=== PATIENT | male | born 1975 ===

== ENCOUNTER 2023-03-21 11:52 | Inpatient (IN) | payer OTHER, SELFPAY ==
--- NOTE | ~2023-03-21 | US_ITS ---
EXAMINATION: US ABDOMEN LIMITED CLINICAL INFORMATION: Right upper quadrant abdominal pain. COMPARISON: None available. TECHNIQUE: Real-time imaging of the right upper quadrant abdominal viscera. FINDINGS: GALLBLADDER: There are multiple mobile echogenic gallstones without gallbladder wall thickening. There is mild tenderness in right upper quadrant. Mild impacted stones are seen in the neck of the gallbladder. COMMON BILE DUCT: CBD is suboptimally visualized and measures 0.7 cm in diameter. FREE FLUID: None. US/US abdomen limited IMPRESSION: Cholelithiasis with mild gallbladder tenderness. Gallbladder wall thickness measures 0.2 cm and is normal.
--- NOTE | 2023-03-21 12:51 | ED.ABDPAIN ---
HPI - Abdominal Pain General Chief Complaint: Abdominal Pain <Odessa Underwood NP - Last Filed: 03/21/23 12:54> Stated Complaint: R side abd pain <Odessa Underwood NP - Last Filed: 03/21/23 12:54> Time Seen by Provider: 03/21/23 13:52 <Odessa Underwood NP - Last Filed: 03/21/23 12:54> Source: patient <JUAN Jenkins - Last Filed: 03/23/23 15:08> Mode of arrival: ambulatory <JUAN Jenkins - Last Filed: 03/23/23 15:08> Limitations: no limitations <JUAN Jenkins Last Filed: 03/23/23 15:08> History of Present Illness HPI narrative: 47 yo male with PMH of morbid obesity (BMI 666), DM2, HTN who presents to the ER for evaluation of right sided abdominal pain that started 3 days ago after eating a seafood stew. He reports the pain was initially in the epigastric area and RUQ. He developed nausea and vomited once yesterday. The pain has migrated to his right middle abdomen and right lower abdomen. He rates the pain 7/10. He has been unable to tolerate any PO since the pain started. He has not had a BM since Tuesday either. No fever or chills, no urinary symptoms. No hx abdominal surgeries. He weighs 476 lbs and is seeing a bariatric surgeron at [facility]. <JUAN Jenkins - Last Filed: 03/23/23 15:08> MD elicited complaint: abdominal pain <JUAN Jenkins Last Filed: 03/23/23 15:08> Pertinent past history: none <JUAN Jenkins Last Filed: 03/23/23 15:08> Onset (ago): day(s) (3) <JUAN Jenkins Last Filed: 03/23/23 15:08> Pain Consistency: constant <JUAN Jenkins Last Filed: 03/23/23 15:08> Location: epigastric, RUQ and RLQ <JUAN Jenkins Last Filed: 03/23/23 15:08> Severity: moderate <JUAN Jenkins - Last Filed: 03/23/23 15:08> Pain scale (0-10): 7 <JUAN Jenkins - Last Filed: 03/23/23 15:08> Quality: stabbing <JUAN Jenkins - Last Filed: 03/23/23 15:08> Migration to: RLQ <JUAN Jenkins - Last Filed: 03/23/23 15:08> Exacerbating factors: eating <JUAN Jenkins - Last Filed: 03/23/23 15:08> Relieving factors: nothing <JUAN Jenkins - Last Filed: 03/23/23 15:08> Associated symptoms: nausea and vomiting <JUAN Jenkins - Last Filed: 03/23/23 15:08> Related Data Home Medications: Home Medications Medication Instructions Recorded Confirmed aspirin 81 mg tablet,delayed 81 mg PO DAILY 03/22/23 03/22/23 release dulaglutide 0.75 mg/0.5 mL 0.75 mg subcut QWEEK diabetes 03/22/23 03/22/23 subcutaneous pen injector (Trulicity) lisinopril 30 mg tablet 30 mg PO DAILY 03/22/23 03/22/23 loratadine 10 mg tablet 10 mg PO DAILY 03/22/23 03/22/23 pantoprazole 20 mg tablet,delayed 20 mg PO DAILY 03/22/23 03/22/23 release <Odessa Underwood NP - Last Filed: 03/21/23 12:54> Allergies/Adverse Reactions: Allergies Allergy/AdvReac Type Severity Reaction Status Date / Time No Known Allergies Allergy Verified 03/21/23 12:52 <Odessa Underwood NP - Last Filed: 03/21/23 12:54> Review of Systems Review of Systems Yes all other systems are reviewed and are negative <JUAN Jenkins - Last Filed: 03/23/23 15:08> PMFSH Past Medical History Medical History: Medical History (Updated 03/21/23 @ 23:57 by Sheryl Garza MD) Diabetes Hypertension <Odessa Underwood NP - Last Filed: 03/21/23 12:54> Surgical History: Surgical History (Updated 03/21/23 @ 23:58 by Sheryl Garza MD) No pertinent past surgical history <Odessa Underwood NP - Last Filed: 03/21/23 12:54> Social History Social History: Social History (Updated 03/21/23 @ 23:58 by Sheryl Garza MD) Household Members: Family Housing: Apartment Alcohol intake: current Alcohol intake frequency: does not drink Patient Tobacco Use Status: Never used Tobacco Second Hand Smoke Exposure: No service: No Current occupational status: disabled <Odessa Underwood NP - Last Filed: 03/21/23 12:54> Physical Exam ED Vital Signs: Vital Signs - 24 hr 03/21/23 12:53 03/21/23 15:46 03/21/23 14:30 Temperature 98.1 F 98.3 F Pulse Rate 99 83 84 Respiratory Rate 18 18 Blood Pressure 188/101 H 173/85 H 157/79 H Pulse Oximetry 98 97 96 Oxygen Delivery Method Room Air Room Air Room Air 03/21/23 18:41 03/21/23 20:46 03/21/23 23:21 Temperature 98.9 F 99.1 F 98.7 F Pulse Rate 85 84 89 Respiratory Rate 18 18 16 Blood Pressure 158/82 H 154/82 H 163/77 H Pulse Oximetry 97 97 97 Oxygen Delivery Method Room Air Room Air Room Air BMI result Body Mass Index 66.5 <Odessa Underwood NP - Last Filed: 03/21/23 12:54> Vital Signs - 24 hr 03/21/23 12:53 03/21/23 15:46 03/21/23 14:30 Temperature 98.1 F 98.3 F Pulse Rate 99 83 84 Respiratory Rate 18 18 Blood Pressure 188/101 H 173/85 H 157/79 H Pulse Oximetry 98 97 96 Oxygen Delivery Method Room Air Room Air Room Air 03/21/23 18:41 03/21/23 20:46 03/21/23 23:21 Temperature 98.9 F 99.1 F 98.7 F Pulse Rate 85 84 89 Respiratory Rate 18 18 16 Blood Pressure 158/82 H 154/82 H 163/77 H Pulse Oximetry 97 97 97 Oxygen Delivery Method Room Air Room Air Room Air BMI result Body Mass Index 66.5 <JUAN Jenkins - Last Filed: 03/23/23 15:08> Vital Signs - 24 hr 03/21/23 12:53 03/21/23 15:46 03/21/23 14:30 Temperature 98.1 F 98.3 F Pulse Rate 99 83 84 Respiratory Rate 18 18 Blood Pressure 188/101 H 173/85 H 157/79 H Pulse Oximetry 98 97 96 Oxygen Delivery Method Room Air Room Air Room Air 03/21/23 18:41 03/21/23 20:46 03/21/23 23:21 Temperature 98.9 F 99.1 F 98.7 F Pulse Rate 85 84 89 Respiratory Rate 18 18 16 Blood Pressure 158/82 H 154/82 H 163/77 H Pulse Oximetry 97 97 97 Oxygen Delivery Method Room Air Room Air Room Air BMI result Body Mass Index 66.5 <JUAN Schulz - Last Filed: 03/22/23 01:18> Appearance: Alert. Oriented X3. No acute distress. Head: normocephalic, atraumatic. Eyes: Pupils equal, round and reactive to light. ENT: Pharynx normal. No tonsillar swelling or exudate. Neck: Normal inspection. Neck supple. CVS: Normal heart rate and rhythm. Pulses normal. Respiratory: No respiratory distress. Breath sounds normal. Abdomen: Morbidly obese, Soft with tenderness in the right middle abdomen and right lower abdomen, no rebound or guarding, +BS x4 Skin: Skin warm and dry. Normal skin color. Normal skin turgor. No rashes. Extremities: No lower extremity edema. No joint swelling. Neuro/psych: Oriented X 3. No motor deficit. No sensory deficit. CN II-XII intact. Normal speech and cognition. <JUAN Jenkins - Last Filed: 03/23/23 15:08> Course Course Course Narrative: This is a rapid medical exam. Deferred additional HPI, ROS, PE to primary provider. 47 yo male DM, HTN here with right sided abdominal pain since Tuesday w/ vomiting. No diarrhea, fevers, urinary symptoms. No previous abdominal surgery. Patient reports no previous abdominal MRI he was told he had gallstones. Patient reports this began after eating seafood with bladder on Tuesday evening Will check labs, UA, abdominal ultrasound <Odessa Underwood NP - Last Filed: 03/21/23 12:54> Reevaluation(s) Reevaluation #1: Patient's ultrasound with cholelithiasis with mild gallbladder wall tenderness, gallbladder wall thickening measuring 0.2 cm, patient does have right-sided abdominal pain concerns for possible acute cholecystitis. I did discuss this case with surgery who recommended for me to reach out to GI further input as patient has an elevated bilirubin, I did speak to Dr. Ross GI who reports low suspicion for CBD stone. Patient's bilirubin is just slightly elevated, he has normal transaminases and alk-phos therefore low suspicion for CBD stone. Does recommend HIDA scan and MRCP if possible however no need for emergent scans at this time. Plan at this time is for hospital admission, with a surgical and GI consult. <JUAN Schulz - Last Filed: 03/22/23 01:18> Time: 23:01 <JUAN Schulz - Last Filed: 03/22/23 01:18> Reevaluation #2: EKG with ventricular rate of 91, DE normal QRS normal, QT/QTC normal. She is showing right bundle-branch block no ST elevations or inversions concerning for ischemia, no previous to compare with, patient that chest pain or shortness of breath. <JUAN Schulz - Last Filed: 03/22/23 01:18> Time: 01:18 <JUAN Schulz - Last Filed: 03/22/23 01:18> Medical Decision Making Medical Decision Making MDM Narrative: 47 yo male w/ hx morbid obesity, HTN, DM2 presenting with right sided abdominal pain for the last 3 days. +N/V yesterday. Mild leukocytosis. Question of cholecystitis vs biliary colic vs appendicitis. LFTs not c/w biliary obstruction RUQ U/S pending <JUAN Jenkins Last Filed: 03/23/23 15:08> Differential Diagnosis Differential Diagnoses: The differential diagnosis associated with the presentation includes <JUAN Jenkins Last Filed: 03/23/23 15:08> acute cholecystitis, acute appendicitis, biliary colic, choledocholithiasis, gastroenteritis, diverticulitis, food poisoning, SBO <JUAN Jenkins Last Filed: 03/23/23 15:08> Admission/Observation Consideration of admission/observation: Escalation of care including admission/observation considered <JUAN Jenkins - Last Filed: 03/23/23 15:08> Consult Healthcare Provider Management of the patient was discussed with: Collet Gluer <JUAN Jenkins - Last Filed: 03/23/23 15:08> Dr. Reddy from general surgery - awaiting official RUQ U/S read <JUAN Jenkins - Last Filed: 03/23/23 15:08> Lab Data MDM Lab Attestation statement: I reviewed the patient's lab results. <JUAN Jenkins - Last Filed: 03/23/23 15:08> mild leukocytosis and mild hyponatremia, normal renal function, no evidence of biliary obstruction, ALP normal <JUAN Jenkins - Last Filed: 03/23/23 15:08> Result Diagrams: 03/21/23 13:06 03/21/23 13:06 <Odessa Underwood NP - Last Filed: 03/21/23 12:54> Labs: Lab Results 03/21/23 03/21/23 03/21/23 Range/Units 13:06 13:06 13:06 WBC 12.8 H (4.8-10.8) X10*3/uL RBC 5.16 (4.60-5.80) X10*6/uL Hgb 15.3 (14.0-18.0) g/dl Hct 43.8 (42.0-52.0) % MCV 84.9 (80.0-98.0) fL MCH 29.7 (27.0-33.0) pg MCHC 34.9 (31.0-36.0) g/dl RDW 12.3 (11.0-16.0) % Plt Count 207 (160-400) X10*3/uL MPV 9.8 (9.4-12.4) fL Immature Gran % (Auto) 0.4 (0.0-0.4) % Neut % (Auto) 77.4 H (45-73) % Lymph % (Auto) 10.0 L (20-40) % [place] % (Auto) 11.6 H (2-11) % Eos % (Auto) 0.3 (0-4) % Baso % (Auto) 0.3 (0-2) % Lymph # (Auto) 1.3 (1.2-4.9) X10*3/uL [place] # (Auto) 1.5 H (0.1-1.2) X10*3/uL Eos # (Auto) 0.0 (0.0-0.4) X10*3/uL Baso # (Auto) 0.0 (0.0-0.2) X10*3/uL Abs Immat Gran (auto) 0.05 H (0.00-0.03) X10*3/uL Absolute Neuts (auto) 9.9 H (2.0-8.3) x10*3/uL Absolute Nucleated RBC 0.000 (0.0-0.012) X10*3/uL Nucleated RBC % (auto) 0.0 (0.0-0.2) /100WBC Smear Tech's Comments VERIFIED Sodium 132 L (135-145) mmol/L Potassium 4.2 (3.3-5.1) mmol/L Chloride 100 (96-108) mmol/L Carbon Dioxide 24 (22-29) mmol/L Anion Gap 12 (12-20) BUN 7 L (9-16) mg/dL Creatinine 0.73 (0.5-1.4) mg/dL Estim Creat Clear Calc 235.5 Estimated GFR > 60 Random Glucose 194 H (60-115) mg/dL Calcium 9.2 (8.4-10.2) mg/dL Total Bilirubin 1.6 H (0.0-1.0) mg/dL Direct Bilirubin 0.4 (0.0-0.5) mg/dL AST 32 (5-37) U/L ALT 45 H (0-40) U/L Alkaline Phosphatase 90 (39-117) U/L Total Protein 7.8 (6.5-8.0) g/dL Albumin 4.2 (3.5-5.0) g/dL Lipase 30 (8-78) U/L Urine Color Urine Appearance Urine pH (5.0-9.0) Ur Specific [place] (1.005-1.025) Urine Protein (Neg-Trace) mg/dL Urine Glucose (UA) (Negative) mg/dL Urine Ketones (Negative) mg/dL Urine Blood (Negative) Urine Nitrite (Negative) Ur Leukocyte Esterase (Negative) COVID-19 (ALESSANDRA) Negative (Negative) COVID-19 Clin Com See Note 03/21/23 Range/Units 16:29 WBC (4.8-10.8) X10*3/uL RBC (4.60-5.80) X10*6/uL Hgb (14.0-18.0) g/dl Hct (42.0-52.0) % MCV (80.0-98.0) fL MCH (27.0-33.0) pg MCHC (31.0-36.0) g/dl RDW (11.0-16.0) % Plt Count (160-400) X10*3/uL MPV (9.4-12.4) fL Immature Gran % (Auto) (0.0-0.4) % Neut % (Auto) (45-73) % Lymph % (Auto) (20-40) % [place] % (Auto) (2-11) % Eos % (Auto) (0-4) % Baso % (Auto) (0-2) % Lymph # (Auto) (1.2-4.9) X10*3/uL [place] # (Auto) (0.1-1.2) X10*3/uL Eos # (Auto) (0.0-0.4) X10*3/uL Baso # (Auto) (0.0-0.2) X10*3/uL Abs Immat Gran (auto) (0.00-0.03) X10*3/uL Absolute Neuts (auto) (2.0-8.3) x10*3/uL Absolute Nucleated RBC (0.0-0.012) X10*3/uL Nucleated RBC % (auto) (0.0-0.2) /100WBC Smear Tech's Comments Sodium (135-145) mmol/L Potassium (3.3-5.1) mmol/L Chloride (96-108) mmol/L Carbon Dioxide (22-29) mmol/L Anion Gap (12-20) BUN (9-16) mg/dL Creatinine (0.5-1.4) mg/dL Estim Creat Clear Calc Estimated GFR Random Glucose (60-115) mg/dL Calcium (8.4-10.2) mg/dL Total Bilirubin (0.0-1.0) mg/dL Direct Bilirubin (0.0-0.5) mg/dL AST (5-37) U/L ALT (0-40) U/L Alkaline Phosphatase (39-117) U/L Total Protein (6.5-8.0) g/dL Albumin (3.5-5.0) g/dL Lipase (8-78) U/L Urine Color Yellow Urine Appearance Clear Urine pH 7.5 (5.0-9.0) Ur Specific [place] 1.010 (1.005-1.025) Urine Protein Negative (Neg-Trace) mg/dL Urine Glucose (UA) Negative (Negative) mg/dL Urine Ketones Negative (Negative) mg/dL Urine Blood Negative (Negative) Urine Nitrite Negative (Negative) Ur Leukocyte Esterase Negative (Negative) COVID-19 (ALESSANDRA) (Negative) COVID-19 Clin Com <Odessa Underwood [employer] - Last Filed: 03/21/23 12:54> Lab Results 03/21/23 03/21/23 03/21/23 Range/Units 13:06 13:06 13:06 WBC 12.8 H (4.8-10.8) X10*3/uL RBC 5.16 (4.60-5.80) X10*6/uL Hgb 15.3 (14.0-18.0) g/dl Hct 43.8 (42.0-52.0) % MCV 84.9 (80.0-98.0) fL MCH 29.7 (27.0-33.0) pg MCHC 34.9 (31.0-36.0) g/dl RDW 12.3 (11.0-16.0) % Plt Count 207 (160-400) X10*3/uL MPV 9.8 (9.4-12.4) fL Immature Gran % (Auto) 0.4 (0.0-0.4) % Neut % (Auto) 77.4 H (45-73) % Lymph % (Auto) 10.0 L (20-40) % [place] % (Auto) 11.6 H (2-11) % Eos % (Auto) 0.3 (0-4) % Baso % (Auto) 0.3 (0-2) % Lymph # (Auto) 1.3 (1.2-4.9) X10*3/uL [place] # (Auto) 1.5 H (0.1-1.2) X10*3/uL Eos # (Auto) 0.0 (0.0-0.4) X10*3/uL Baso # (Auto) 0.0 (0.0-0.2) X10*3/uL Abs Immat Gran (auto) 0.05 H (0.00-0.03) X10*3/uL Absolute Neuts (auto) 9.9 H (2.0-8.3) x10*3/uL Absolute Nucleated RBC 0.000 (0.0-0.012) X10*3/uL Nucleated RBC % (auto) 0.0 (0.0-0.2) /100WBC Smear Tech's Comments VERIFIED Sodium 132 L (135-145) mmol/L Potassium 4.2 (3.3-5.1) mmol/L Chloride 100 (96-108) mmol/L Carbon Dioxide 24 (22-29) mmol/L Anion Gap 12 (12-20) BUN 7 L (9-16) mg/dL Creatinine 0.73 (0.5-1.4) mg/dL Estim Creat Clear Calc 235.5 Estimated GFR > 60 Random Glucose 194 H (60-115) mg/dL Calcium 9.2 (8.4-10.2) mg/dL Total Bilirubin 1.6 H (0.0-1.0) mg/dL Direct Bilirubin 0.4 (0.0-0.5) mg/dL AST 32 (5-37) U/L ALT 45 H (0-40) U/L Alkaline Phosphatase 90 (39-117) U/L Total Protein 7.8 (6.5-8.0) g/dL Albumin 4.2 (3.5-5.0) g/dL Lipase 30 (8-78) U/L Urine Color Urine Appearance Urine pH (5.0-9.0) Ur Specific [place] (1.005-1.025) Urine Protein (Neg-Trace) mg/dL Urine Glucose (UA) (Negative) mg/dL Urine Ketones (Negative) mg/dL Urine Blood (Negative) Urine Nitrite (Negative) Ur Leukocyte Esterase (Negative) COVID-19 (ALESSANDRA) Negative (Negative) COVID-19 Clin Com See Note 03/21/23 Range/Units 16:29 WBC (4.8-10.8) X10*3/uL RBC (4.60-5.80) X10*6/uL Hgb (14.0-18.0) g/dl Hct (42.0-52.0) % MCV (80.0-98.0) fL MCH (27.0-33.0) pg MCHC (31.0-36.0) g/dl RDW (11.0-16.0) % Plt Count (160-400) X10*3/uL MPV (9.4-12.4) fL Immature Gran % (Auto) (0.0-0.4) % Neut % (Auto) (45-73) % Lymph % (Auto) (20-40) % [place] % (Auto) (2-11) % Eos % (Auto) (0-4) % Baso % (Auto) (0-2) % Lymph # (Auto) (1.2-4.9) X10*3/uL [place] # (Auto) (0.1-1.2) X10*3/uL Eos # (Auto) (0.0-0.4) X10*3/uL Baso # (Auto) (0.0-0.2) X10*3/uL Abs Immat Gran (auto) (0.00-0.03) X10*3/uL Absolute Neuts (auto) (2.0-8.3) x10*3/uL Absolute Nucleated RBC (0.0-0.012) X10*3/uL Nucleated RBC % (auto) (0.0-0.2) /100WBC Smear Tech's Comments Sodium (135-145) mmol/L Potassium (3.3-5.1) mmol/L Chloride (96-108) mmol/L Carbon Dioxide (22-29) mmol/L Anion Gap (12-20) BUN (9-16) mg/dL Creatinine (0.5-1.4) mg/dL Estim Creat Clear Calc Estimated GFR Random Glucose (60-115) mg/dL Calcium (8.4-10.2) mg/dL Total Bilirubin (0.0-1.0) mg/dL Direct Bilirubin (0.0-0.5) mg/dL AST (5-37) U/L ALT (0-40) U/L Alkaline Phosphatase (39-117) U/L Total Protein (6.5-8.0) g/dL Albumin (3.5-5.0) g/dL Lipase (8-78) U/L Urine Color Yellow Urine Appearance Clear Urine pH 7.5 (5.0-9.0) Ur Specific [place] 1.010 (1.005-1.025) Urine Protein Negative (Neg-Trace) mg/dL Urine Glucose (UA) Negative (Negative) mg/dL Urine Ketones Negative (Negative) mg/dL Urine Blood Negative (Negative) Urine Nitrite Negative (Negative) Ur Leukocyte Esterase Negative (Negative) COVID-19 (ALESSANDRA) (Negative) COVID-19 Clin Com <JUAN Jenkins - Last Filed: 03/23/23 15:08> Lab Results 03/21/23 03/21/23 03/21/23 Range/Units 13:06 13:06 13:06 WBC 12.8 H (4.8-10.8) X10*3/uL RBC 5.16 (4.60-5.80) X10*6/uL Hgb 15.3 (14.0-18.0) g/dl Hct 43.8 (42.0-52.0) % MCV 84.9 (80.0-98.0) fL MCH 29.7 (27.0-33.0) pg MCHC 34.9 (31.0-36.0) g/dl RDW 12.3 (11.0-16.0) % Plt Count 207 (160-400) X10*3/uL MPV 9.8 (9.4-12.4) fL Immature Gran % (Auto) 0.4 (0.0-0.4) % Neut % (Auto) 77.4 H (45-73) % Lymph % (Auto) 10.0 L (20-40) % [place] % (Auto) 11.6 H (2-11) % Eos % (Auto) 0.3 (0-4) % Baso % (Auto) 0.3 (0-2) % Lymph # (Auto) 1.3 (1.2-4.9) X10*3/uL [place] # (Auto) 1.5 H (0.1-1.2) X10*3/uL Eos # (Auto) 0.0 (0.0-0.4) X10*3/uL Baso # (Auto) 0.0 (0.0-0.2) X10*3/uL Abs Immat Gran (auto) 0.05 H (0.00-0.03) X10*3/uL Absolute Neuts (auto) 9.9 H (2.0-8.3) x10*3/uL Absolute Nucleated RBC 0.000 (0.0-0.012) X10*3/uL Nucleated RBC % (auto) 0.0 (0.0-0.2) /100WBC Smear Tech's Comments VERIFIED Sodium 132 L (135-145) mmol/L Potassium 4.2 (3.3-5.1) mmol/L Chloride 100 (96-108) mmol/L Carbon Dioxide 24 (22-29) mmol/L Anion Gap 12 (12-20) BUN 7 L (9-16) mg/dL Creatinine 0.73 (0.5-1.4) mg/dL Estim Creat Clear Calc 235.5 Estimated GFR > 60 Random Glucose 194 H (60-115) mg/dL Calcium 9.2 (8.4-10.2) mg/dL Total Bilirubin 1.6 H (0.0-1.0) mg/dL Direct Bilirubin 0.4 (0.0-0.5) mg/dL AST 32 (5-37) U/L ALT 45 H (0-40) U/L Alkaline Phosphatase 90 (39-117) U/L Total Protein 7.8 (6.5-8.0) g/dL Albumin 4.2 (3.5-5.0) g/dL Lipase 30 (8-78) U/L Urine Color Urine Appearance Urine pH (5.0-9.0) Ur Specific [place] (1.005-1.025) Urine Protein (Neg-Trace) mg/dL Urine Glucose (UA) (Negative) mg/dL Urine Ketones (Negative) mg/dL Urine Blood (Negative) Urine Nitrite (Negative) Ur Leukocyte Esterase (Negative) COVID-19 (ALESSANDRA) Negative (Negative) COVID-19 Clin Com See Note 03/21/23 Range/Units 16:29 WBC (4.8-10.8) X10*3/uL RBC (4.60-5.80) X10*6/uL Hgb (14.0-18.0) g/dl Hct (42.0-52.0) % MCV (80.0-98.0) fL MCH (27.0-33.0) pg MCHC (31.0-36.0) g/dl RDW (11.0-16.0) % Plt Count (160-400) X10*3/uL MPV (9.4-12.4) fL Immature Gran % (Auto) (0.0-0.4) % Neut % (Auto) (45-73) % Lymph % (Auto) (20-40) % [place] % (Auto) (2-11) % Eos % (Auto) (0-4) % Baso % (Auto) (0-2) % Lymph # (Auto) (1.2-4.9) X10*3/uL [place] # (Auto) (0.1-1.2) X10*3/uL Eos # (Auto) (0.0-0.4) X10*3/uL Baso # (Auto) (0.0-0.2) X10*3/uL Abs Immat Gran (auto) (0.00-0.03) X10*3/uL Absolute Neuts (auto) (2.0-8.3) x10*3/uL Absolute Nucleated RBC (0.0-0.012) X10*3/uL Nucleated RBC % (auto) (0.0-0.2) /100WBC Smear Tech's Comments Sodium (135-145) mmol/L Potassium (3.3-5.1) mmol/L Chloride (96-108) mmol/L Carbon Dioxide (22-29) mmol/L Anion Gap (12-20) BUN (9-16) mg/dL Creatinine (0.5-1.4) mg/dL Estim Creat Clear Calc Estimated GFR Random Glucose (60-115) mg/dL Calcium (8.4-10.2) mg/dL Total Bilirubin (0.0-1.0) mg/dL Direct Bilirubin (0.0-0.5) mg/dL AST (5-37) U/L ALT (0-40) U/L Alkaline Phosphatase (39-117) U/L Total Protein (6.5-8.0) g/dL Albumin (3.5-5.0) g/dL Lipase (8-78) U/L Urine Color Yellow Urine Appearance Clear Urine pH 7.5 (5.0-9.0) Ur Specific [place] 1.010 (1.005-1.025) Urine Protein Negative (Neg-Trace) mg/dL Urine Glucose (UA) Negative (Negative) mg/dL Urine Ketones Negative (Negative) mg/dL Urine Blood Negative (Negative) Urine Nitrite Negative (Negative) Ur Leukocyte Esterase Negative (Negative) COVID-19 (ALESSANDRA) (Negative) COVID-19 Clin Com <JUAN Schulz - Last Filed: 03/22/23 01:18> Independent Interpretation I performed an independent interpretation of an: Ultrasound <JUAN Jenkins - Last Filed: 03/23/23 15:08> Interpretation: GB stones present <JUAN Jenkins - Last Filed: 03/23/23 15:08> Radiology Impression Discussion of test interpretation with radiology: I have reviewed the radiologist's reading. <JUAN Jenkins - Last Filed: 03/23/23 15:08> Prescription Management I considered prescription management with: Pain Medication and Antibiotic <JUAN Jenkins Last Filed: 03/23/23 15:08> Chronic Conditions Patient?s care impacted by: Diabetes, Hypertension and Other (morbid obesity) <JUAN Jenkins Last Filed: 03/23/23 15:08> Medications Administered Generic Name Dose Route Start Last Admin Trade Name Freq PRN Reason Stop Dose Admin Acetaminophen 650 mg 03/21/23 23:30 03/23/23 04:06 Acetaminophen 325 Mg Tablet PO 650 mg Q6H PRN Administration Pain, Mild (Pain Scale 1-3) Docusate Sodium 100 mg 03/22/23 21:00 03/23/23 08:17 Docusate Sodium 100 Mg Capsule PO 100 mg BID KARRIE Administration Ceftriaxone Sodium 1 gm/ 50 mls @ 100 mls/hr 03/22/23 00:00 03/22/23 21:35 Sodium Chloride IV Infused BEDTIME [facility] Infusion Metronidazole 500 mg in 100 mls @ 100 mls/hr 03/22/23 00:00 03/23/23 09:45 Flagyl IV Infused Q8H KARRIE Infusion Sodium Chloride 1,000 mls @ 80 mls/hr 03/21/23 23:45 03/23/23 13:16 Ns IVCONT 80 mls/hr .[id number] KARRIE Administration Insulin Human Lispro 0 unit 03/22/23 07:30 03/23/23 11:52 Insulin Lispro 100 Unit/Ml 3 Ml Vial SUBCUT 4 unit QIDACHS [facility] Administration Protocol Loratadine 10 mg 03/22/23 09:00 03/23/23 08:17 Loratadine 10 Mg Tablet PO 10 mg DAILY [facility] Administration Morphine Sulfate 4 mg 03/21/23 23:30 03/22/23 21:15 Morphine Sulfate 4 Mg/Ml Cartridge IVPUSH 4 mg Q4H PRN Administration Pain, Severe (Pain Scale 7-10) Protocol Omeprazole 20 mg 03/23/23 06:30 03/23/23 05:22 Omeprazole 20 Mg Capsule.Dr PO 20 mg DAILY@0630 [facility] Administration Oxycodone HCl 10 mg 03/22/23 16:40 03/23/23 04:07 Oxycodone Hcl Immed Release 5 Mg Tablet PO 10 mg Q4H PRN Administration Pain, Severe (Pain Scale 7-10) Sodium Chloride 3 ml 03/22/23 00:00 03/23/23 08:29 0.9 % Sodium Chloride Flush 3 Ml Syringe IVFLUSH 3 ml QSHIFT [facility] Administration Sodium Chloride 3 ml 03/22/23 16:00 03/23/23 08:29 0.9 % Sodium Chloride Flush 3 Ml [facility]ringe [facility] Medications Generic Name Dose Route Start Last Admin Trade Name Freq PRN Reason Stop Dose Admin Sodium Chloride 1,000 mls @ 999 mls/hr 03/21/23 14:45 03/21/23 16:26 Ns IV 03/21/23 15:45 Infused .Q1H1M [facility] Infusion Morphine Sulfate 4 mg 03/21/23 14:39 03/21/23 15:26 Morphine Sulfate 4 Mg/Ml Cartridge IVPUSH 03/21/23 14:40 4 mg ONCE ONE Administration Protocol Ondansetron HCl 4 mg 03/21/23 14:39 03/21/23 15:26 Ondansetron Hcl 4 Mg/2 Ml Vial IVPUSH 03/21/23 14:40 4 mg ONCE ONE Administration <Odessa Underwood NP - Last Filed: 03/21/23 12:54> Medications Administered Generic Name Dose Route Start Last Admin Trade Name Freq PRN Reason Stop Dose Admin Acetaminophen 650 mg 03/21/23 23:30 03/23/23 04:06 Acetaminophen 325 Mg Tablet PO 650 mg Q6H PRN Administration Pain, Mild (Pain Scale 1-3) Docusate Sodium 100 mg 03/22/23 21:00 03/23/23 08:17 Docusate Sodium 100 Mg Capsule PO 100 mg BID [facility]E Administration Ceftriaxone Sodium 1 gm/ 50 mls @ 100 mls/hr 03/22/23 00:00 03/22/23 21:35 Sodium Chloride IV Infused BEDTIME [facility] Infusion Metronidazole 500 mg in 100 mls @ 100 mls/hr 03/22/23 00:00 03/23/23 09:45 Flagyl IV Infused Q8H [facility] Infusion Sodium Chloride 1,000 mls @ 80 mls/hr 03/21/23 23:45 03/23/23 13:16 Ns IVCONT 80 mls/hr .[id number] [facility] Administration Insulin Human Lispro 0 unit 03/22/23 07:30 03/23/23 11:52 Insulin Lispro 100 Unit/Ml 3 Ml Vial SUBCUT 4 unit QIDACHS [facility] Administration Protocol Loratadine 10 mg 03/22/23 09:00 03/23/23 08:17 Loratadine 10 Mg Tablet PO 10 mg DAILY [facility] Administration Morphine Sulfate 4 mg 03/21/23 23:30 03/22/23 21:15 Morphine Sulfate 4 Mg/Ml Cartridge IVPUSH 4 mg Q4H PRN Administration Pain, Severe (Pain Scale 7-10) Protocol Omeprazole 20 mg 03/23/23 06:30 03/23/23 05:22 Omeprazole 20 Mg Capsule.Dr PO 20 mg DAILY@0630 [facility] Administration Oxycodone HCl 10 mg 03/22/23 16:40 03/23/23 04:07 Oxycodone Hcl Immed Release 5 Mg Tablet PO 10 mg Q4H PRN Administration Pain, Severe (Pain Scale 7-10) Sodium Chloride 3 ml 03/22/23 00:00 03/23/23 08:29 0.9 % Sodium Chloride Flush 3 Ml Syringe IVFLUSH 3 ml QSHIFT KARRIE Administration Sodium Chloride 3 ml 03/22/23 16:00 03/23/23 08:29 0.9 % Sodium Chloride Flush 3 Ml Syringe IVFLUSH Not Given QSHIFT KARRIE Discontinued Medications Generic Name Dose Route Start Last Admin Trade Name Freq PRN Reason Stop Dose Admin Sodium Chloride 1,000 mls @ 999 mls/hr 03/21/23 14:45 03/21/23 16:26 Ns IV 03/21/23 15:45 Infused .Q1H1M KARRIE Infusion Morphine Sulfate 4 mg 03/21/23 14:39 03/21/23 15:26 Morphine Sulfate 4 Mg/Ml Cartridge IVPUSH 03/21/23 14:40 4 mg ONCE ONE Administration Protocol Ondansetron HCl 4 mg 03/21/23 14:39 03/21/23 15:26 Ondansetron Hcl 4 Mg/2 Ml Vial IVPUSH 03/21/23 14:40 4 mg ONCE ONE Administration <JUAN Jenkins - Last Filed: 03/23/23 15:08> Medications Administered Generic Name Dose Route Start Last Admin Trade Name Winston PRN Reason Stop Dose Admin Acetaminophen 650 mg 03/21/23 23:30 03/23/23 04:06 Acetaminophen 325 Mg Tablet PO 650 mg Q6H PRN Administration Pain, Mild (Pain Scale 1-3) Docusate Sodium 100 mg 03/22/23 21:00 03/23/23 08:17 Docusate Sodium 100 Mg Capsule PO 100 mg BID KARRIE Administration Ceftriaxone Sodium 1 gm/ 50 mls @ 100 mls/hr 03/22/23 00:00 03/22/23 21:35 Sodium Chloride IV Infused BEDTIME KARRIE Infusion Metronidazole 500 mg in 100 mls @ 100 mls/hr 03/22/23 00:00 03/23/23 09:45 Flagyl IV Infused Q8H KARRIE Infusion Sodium Chloride 1,000 mls @ 80 mls/hr 03/21/23 23:45 03/23/23 13:16 Ns IVCONT 80 mls/hr .[id number] KARRIE Administration Insulin Human Lispro 0 unit 03/22/23 07:30 03/23/23 11:52 Insulin Lispro 100 Unit/Ml 3 Ml Vial SUBCUT 4 unit QIDACHS [facility] Administration Protocol Loratadine 10 mg 03/22/23 09:00 03/23/23 08:17 Loratadine 10 Mg Tablet PO 10 mg DAILY KARRIE Administration Morphine Sulfate 4 mg 03/21/23 23:30 03/22/23 21:15 Morphine Sulfate 4 Mg/Ml Cartridge IVPUSH 4 mg Q4H PRN Administration Pain, Severe (Pain Scale 7-10) Protocol Omeprazole 20 mg 03/23/23 06:30 03/23/23 05:22 Omeprazole 20 Mg Capsule.Dr PO 20 mg DAILY@0630 [facility] Administration Oxycodone HCl 10 mg 03/22/23 16:40 03/23/23 04:07 Oxycodone Hcl Immed Release 5 Mg Tablet PO 10 mg Q4H PRN Administration Pain, Severe (Pain Scale 7-10) Sodium Chloride 3 ml 03/22/23 00:00 03/23/23 08:29 0.9 % Sodium Chloride Flush 3 Ml Syringe IVFLUSH 3 ml QSWVFT [facility] Administration Sodium Chloride 3 ml 03/22/23 16:00 03/23/23 08:29 0.9 % Sodium Chloride Flush 3 Ml [facility]ringe [facility] Discontinued Medications Generic Name Dose Route Start Last Admin Trade Name Freq PRN Reason Stop Dose Admin Sodium Chloride 1,000 mls @ 999 mls/hr 03/21/23 14:45 03/21/23 16:26 Ns IV 03/21/23 15:45 Infused .Q1H1M KARRIE Infusion Morphine Sulfate 4 mg 03/21/23 14:39 03/21/23 15:26 Morphine Sulfate 4 Mg/Ml Cartridge IVPUSH 03/21/23 14:40 4 mg ONCE ONE Administration Protocol Ondansetron HCl 4 mg 03/21/23 14:39 03/21/23 15:26 Ondansetron Hcl 4 Mg/2 Ml Vial IVPUSH 03/21/23 14:40 4 mg ONCE ONE Administration <JUAN Schulz - Last Filed: 03/22/23 01:18> Critical Care Time Critical Care Time Critical Care Time: No <JUAN Schulz - Last Filed: 03/22/23 01:18> Discharge Plan Discharge Clinical Impression: Abdominal pain, Cholelithiasis, Nausea & vomiting <Odessa Underwood NP - Last Filed: 03/21/23 12:54> Patient Disposition: Admitted As Inpatient <Odessa Underwood NP - Last Filed: 03/21/23 12:54> Interventions: Admission Worksheet (ED) Last Done: 03/22/23 01:57 <Odessa Underwood NP - Last Filed: 03/21/23 12:54> Discharge Date/Time: 03/22/23 01:57 <Odessa Underwood NP - Last Filed: 03/21/23 12:54>
[2023-03-21 12:53] VITALS: BP 188/101; PULSE 99; RESP 18; TEMP 36.7; O2SAT 98; BMI 66.5
[2023-03-21 13:17] LABS: Basophils Percent Auto 0.3 % (0-2); PLT CLUMP 1; Red Cell Distribution Width 12.3 % (11.0-16.0); SCAN SMEAR FLAG 1
[2023-03-21 13:19] LABS: Eosinophils Percent Auto 0.3 % (0-4); Hematocrit 43.8 % (42.0-52.0); Hemoglobin 15.3 g/dl (14.0-18.0); Imm Gran Abs Auto 0.05 X10*3/uL (0.00-0.03); Imm Gran Pct Auto 0.4 % (0.0-0.4); Lymphocytes Absolute Auto 1.3 X10*3/uL (1.2-4.9); MANUAL DIFF FLAG SCAN; Mean Corpuscular HGB Conc 34.9 g/dl (31.0-36.0); Mean Corpuscular Hemoglobin 29.7 pg (27.0-33.0); Mean Corpuscular Volume 84.9 fL (80.0-98.0); Mean Platelet Volume 9.8 fL (9.4-12.4); Monocytes Absolute Auto 1.5 X10*3/uL (0.1-1.2); Monocytes Percent Auto 11.6 % (2-11); Neutrophils Absolute Auto 9.9 x10*3/uL (2.0-8.3); Neutrophils Percent Auto 77.4 % (45-73); Red Blood Count 5.16 X10*6/uL (4.60-5.80)
[2023-03-21 13:24] LABS: White Blood Count 12.8 X10*3/uL (4.8-10.8)
[2023-03-21 13:30] LABS: COVID-19 Test Negative (Negative); IDNOW Serial# 08D9AD1C
[2023-03-21 13:37] LABS: Alanine Aminotransferase 45 U/L (0-40); Albumin Level 4.2 g/dL (3.5-5.0); Alkaline Phosphatase 90 U/L (39-117); Anion Gap 12 (12-20); Aspartate Amino Transferase 32 U/L (5-37); Bilirubin Direct 0.4 mg/dL (0.0-0.5); Bilirubin Total 1.6 mg/dL (0.0-1.0); Blood Urea Nitrogen 7 mg/dL (9-16); Calcium 9.2 mg/dL (8.4-10.2); Carbon Dioxide 24 mmol/L (22-29); Chloride 100 mmol/L (96-108); Creatinine Clr Calc Pharmacy 235.5; Estimated Glomerular Filt Rate > 60; Glucose Random 194 mg/dL (60-115); Lipase 30 U/L (8-78); Potassium 4.2 mmol/L (3.3-5.1); Sodium 132 mmol/L (135-145); Total Protein 7.8 g/dL (6.5-8.0)
[2023-03-21 13:38] LABS: Platelet Count 207 X10*3/uL (160-400); SLIDE REVIEW VERIFIED
[2023-03-21 14:30] VITALS: BP 157/79; PULSE 84; O2SAT 96
[2023-03-21] MEDS: 0.9 % Sodium Chloride 1,000 ML 999 ML IV (15:17)
[2023-03-21] MEDS: Morphine Sulfate 4 MG/ML CARTRIDGE IVPUSH (15:26)
[2023-03-21] MEDS: ondansetron HCL 4 MG/2 ML VIAL IVPUSH (15:26)
[2023-03-21 15:46] VITALS: BP 173/85; PULSE 83; RESP 18; TEMP 36.8; O2SAT 97
[2023-03-21 16:40] LABS: Appearance Urine Clear; Color Urine Yellow; Glucose Urine UA Negative (Negative); Leukocyte Esterase Urine Negative (Negative); Nitrite Urine Negative (Negative); PH 7.5 (5.0-9.0); Urine Blood Negative (Negative); Urine Ketones Negative (Negative); Urine Protein Negative (Neg-Trace)
[2023-03-21 18:41] VITALS: BP 158/82; PULSE 85; RESP 18; TEMP 37.2; O2SAT 97
[2023-03-21 20:46] VITALS: BP 154/82; PULSE 84; RESP 18; TEMP 37.3; O2SAT 97
--- NOTE | 2023-03-21 23:04 | ECG_ITS ---
Test Reason : abd pain Blood Pressure : / mmHG Vent. Rate : 091 BPM Atrial Rate : 091 BPM P-R Int : 150 ms QRS Dur : 142 ms QT Int : 400 ms P-R-T Axes : 054 062 024 degrees QTc Int : 492 ms Normal sinus rhythm Right bundle branch block Abnormal ECG No previous ECGs available Referred By: Crow Ellis Electronically Signed By:Mahendra Pa
[2023-03-21 23:21] VITALS: BP 163/77; PULSE 89; RESP 16; TEMP 37.1; O2SAT 97
--- NOTE | 2023-03-21 23:22 | MHC.EDTECH ---
THIS PCT ASSUMED CARE OF PATIENT AT 2300 ,VITALS SIGN TAKEN ,EKG DONE AND WAS READ BY PROVIDER ,PATIENT GOT CHANGE INTO HOSPITAL ATTIRE ,DANIELA PACHECO AT BED SIDE .
--- NOTE | 2023-03-21 23:33 | P.HPHOSP_ITS ---
History of Present Illness Date of Service: 03/21/23 Chief Complaint: abdominal pain 27-year-old male past medical history of hypertension, diabetes presents the hospital with complaints of right upper quadrant pain. Patient reports pain started in the epigastric region on Tuesday, worsened over the next 2 days, pain is now localized to the right upper quadrant, associated with nausea, 1 episode of vomiting. Pain is constant, 8/10, nonradiating, worse with eating food, improved with IV morphine. Denies any fever no chills, no previous similar episodes, no diarrhea constipation, no urinary symptoms and no lower extremity edema, no weakness numbness or tingling. No headache or change in vision, no numbness, Weakness or tingling On arrival to the ED patient found to have a temp of 99.1 degrees otherwise stable Labs are significant for WBC count of 12.8,Na 132, total bili 1.6 mostly indirect. is not a candidate for CT of the abdomen given his weight, patient ultrasound showed cholelithiasis with mild gallbladder tenderness, gallbladder wall thickening this was discussed with general surgery, wanted GI to evaluate patient, GI does not believe the patient requires ERCP/MRCP therefore patient will be scheduled for HIDA scan in the morning which general surgery consult Review of Systems Review of Systems: Yes all other systems are reviewed and are negative [facility] Medical History (Updated 03/21/23 @ 23:57 by Sheryl Garza MD) Diabetes Hypertension Surgical History (Updated 03/21/23 @ 23:58 by Sheryl Garza MD) No pertinent past surgical history Social History (Updated 03/21/23 @ 23:58 by Sheryl Garza MD) Alcohol intake: current Alcohol intake frequency: holidays/special occasions only Patient Tobacco Use Status: Never used Tobacco Meds Allergies Allergy/AdvReac Type Severity Reaction Status Date / Time No Known Allergies Allergy Verified 03/21/23 12:52 Active Medications: Current Medications Pharmacy Consult (Consult Rx Perform Med Rec) 1 each MISCELLANE ONCE PRN PRN Reason: Consult order Physical Exam Vital Signs and Narrative: Vital Signs: Last Vital Signs Temp 98.7 F 03/21/23 23:21 Pulse 89 03/21/23 23:21 Resp 16 03/21/23 23:21 BP 163/77 H 03/21/23 23:21 Pulse Ox 97 03/21/23 23:21 O2 Del Method Room Air 03/21/23 23:21 BMI result Body Mass Index 66.5 Const: Other: obese patient General: cooperative and no acute distress Orientation/consciousness: patient oriented x3 Eyes: General: appearance normal, both eyes and all related structures Pupils: Equal, round and reactive pupils present Resp: Effort & Inspection: normal respiratory effort Auscultation: clear to auscultation bilaterally Cardio: Rate: regular rate Rhythm: regular rhythm GI: Other: obese abdomen, has tenderness in the right upper quadrant, no rebound some guarding Palpation (GI): Soft to palpation Auscultation: normal bowel sounds Skin: General skin exam: no rashes or lesions noted Neuro: General: patient oriented x3 Cranial nerves: Yes Equal, round and reactive pupils present Cognition (Neuro): normal cognition Extrem: General: Yes normal to inspection and Yes no pedal edema Results Labs 03/21/23 13:06 03/21/23 13:06 Labs: Laboratory Results - last 24 hr 03/21/23 03/21/23 03/21/23 13:06 13:06 13:06 MCV 84.9 MCH 29.7 MCHC 34.9 RDW 12.3 Plt Count 207 MPV 9.8 Immature Gran % (Auto) 0.4 Neut % (Auto) 77.4 H Lymph % (Auto) 10.0 L Bradley % (Auto) 11.6 H Eos % (Auto) 0.3 Baso % (Auto) 0.3 Lymph # (Auto) 1.3 Bradley # (Auto) 1.5 H Eos # (Auto) 0.0 Baso # (Auto) 0.0 Abs Immat Gran (auto) 0.05 H Absolute Neuts (auto) 9.9 H Absolute Nucleated RBC 0.000 Nucleated RBC % (auto) 0.0 Smear Tech's Comments VERIFIED Anion Gap 12 Estim Creat Clear Calc 235.5 Estimated GFR > 60 Random Glucose 194 H Calcium 9.2 Total Bilirubin 1.6 H Direct Bilirubin 0.4 AST 32 ALT 45 H Alkaline Phosphatase 90 Total Protein 7.8 Albumin 4.2 Lipase 30 Urine Color Urine Appearance Urine pH Ur Specific [place] Urine Protein Urine Glucose (UA) Urine Ketones Urine Blood Urine Nitrite Ur Leukocyte Esterase COVID-19 (ALESSANDRA) Negative COVID-19 Clin Com See Note 03/21/23 16:29 MCV MCH MCHC RDW Plt Count MPV Immature Gran % (Auto) Neut % (Auto) Lymph % (Auto) Bradley % (Auto) Eos % (Auto) Baso % (Auto) Lymph # (Auto) Bradley # (Auto) Eos # (Auto) Baso # (Auto) Abs Immat Gran (auto) Absolute Neuts (auto) Absolute Nucleated RBC Nucleated RBC % (auto) Smear Tech's Comments Anion Gap Estim Creat Clear Calc Estimated GFR Random Glucose Calcium Total Bilirubin Direct Bilirubin AST ALT Alkaline Phosphatase Total Protein Albumin Lipase Urine Color Yellow Urine Appearance Clear Urine pH 7.5 Ur Specific [place] 1.010 Urine Protein Negative Urine Glucose (UA) Negative Urine Ketones Negative Urine Blood Negative Urine Nitrite Negative Ur Leukocyte Esterase Negative COVID-19 (ALESSANDRA) COVID-19 Clin Com Imaging Radiologist's Impressions: Impressions Abdomen Ultrasound 03/21/23 14:26 IMPRESSION: Cholelithiasis with mild gallbladder tenderness. Gallbladder wall thickness measures 0.2 cm and is normal. Assessment and Plan (1) Nausea & vomiting: Status: Acute (2) Abdominal pain: Status: Acute (3) Acute cholecystitis: Status: Acute Plan patient is a 47-year-old male with past medical history of diabetes, hypertension presents to the hospital with complaints of abdominal pain found to have likely acute cholecystitis # abdominal pain, nausea vomiting - pain in the right upper quadrant, with abnormal findings on the ultrasound of the abdomen suggestive of acute cholecystitis - general surgery was consulted, they recommended HIDA scan and admission to general medical - will treat with IV antibiotics - keep NPO - general surgery consult - HIDA scan in the morning - follow cultures # diabetes - low-dose sliding scale insulin - diabetic diet # hypertension - stable - will resume home antihypertensives given patient's need for IV antibiotics patient require minimum 2 nights inpatient hospital stay for further management and monitoring Time Spent With Patient Time: Total time managing care of this patient today ____ minutes. Quality Stroke Does the patient have a stroke diagnosis?: No VTE Prior VTE?: No VTE Risk Level:: Medical - moderate - high VTE Device Contraindication: N/A - Device Ordered VTE Drug Contraindication: Treatment Not Indicated
[2023-03-22] VITALS (13 sets, daily range): BP systolic 133–185; BP diastolic 62–86; PULSE 74–97; RESP 16–24; TEMP 36.4–37.4; O2SAT 93–98; BMI 65.6
[2023-03-22] MEDS: cefTRIAXone sodium 1 GM in 0.9 % Sodium Chloride 50 ML IV ×2 (00:13→21:05)
[2023-03-22] MEDS: 0.9 % Sodium Chloride 1,000 ML 80 ML IVCONT ×2 (00:18→17:25)
[2023-03-22] MEDS: metroNIDAZOLE/NS 500 MG/100 ML PIGGYBACK 100 MG IV ×4 (00:55→23:02)
--- NOTE | 2023-03-22 01:03 | PC.NURSE ---
Pt moved to a hospital bed for comfort, now laying comfortably, respirations even and unlabored, skin pwd, alert and oriented x4. Pt reports mild abdominal pain at this time. IV fluids and abx started and running
[2023-03-22] MEDS: Morphine Sulfate 4 MG/ML CARTRIDGE IVPUSH ×3 (02:30→21:15)
[2023-03-22 06:21] LABS: INTERNATIONAL NORM RATIO 1.2 (0.9-1.1); Prothrombin Time 13.9 SEC (10.0-13.1)
[2023-03-22 06:30] LABS: Basophils Absolute Auto 0.1 X10*3/uL (0.0-0.2); Basophils Percent Auto 0.5 % (0-2); Eosinophils Absolute Auto 0.1 X10*3/uL (0.0-0.4); Eosinophils Percent Auto 0.7 % (0-4); Hematocrit 41.6 % (42.0-52.0); Hemoglobin 14.4 g/dl (14.0-18.0); Imm Gran Abs Auto 0.21 X10*3/uL (0.00-0.03); Imm Gran Pct Auto 1.6 % (0.0-0.4); Lymphocytes Absolute Auto 1.7 X10*3/uL (1.2-4.9); Lymphocytes Percent Auto 12.5 % (20-40); MANUAL DIFF FLAG SCAN; Mean Corpuscular HGB Conc 34.6 g/dl (31.0-36.0); Mean Corpuscular Hemoglobin 30.1 pg (27.0-33.0); Monocytes Absolute Auto 1.8 X10*3/uL (0.1-1.2); Monocytes Percent Auto 13.7 % (2-11); Neutrophils Absolute Auto 9.4 x10*3/uL (2.0-8.3); Platelet Count 211 X10*3/uL (160-400); Red Blood Count 4.78 X10*6/uL (4.60-5.80); Red Cell Distribution Width 12.4 % (11.0-16.0); SCAN SMEAR FLAG 1; White Blood Count 13.2 X10*3/uL (4.8-10.8)
[2023-03-22 06:51] LABS: Alanine Aminotransferase 33 U/L (0-40); Albumin Level 3.7 g/dL (3.5-5.0); Alkaline Phosphatase 79 U/L (39-117); Anion Gap 12 (12-20); Aspartate Amino Transferase 24 U/L (5-37); Bilirubin Direct 0.6 mg/dL (0.0-0.5); Bilirubin Total 1.9 mg/dL (0.0-1.0); Blood Urea Nitrogen 7 mg/dL (9-16); Calcium 8.7 mg/dL (8.4-10.2); Carbon Dioxide 23 mmol/L (22-29); Chloride 101 mmol/L (96-108); Creatinine Clr Calc Pharmacy 236.7; Estimated Glomerular Filt Rate > 60; Glucose Random 174 mg/dL (60-115); Potassium 3.8 mmol/L (3.3-5.1); Sodium 132 mmol/L (135-145); Total Protein 6.8 g/dL (6.5-8.0)
[2023-03-22 07:11] LABS: SLIDE REVIEW VERIFIED
[2023-03-22 07:33] LABS: Glucose, Whole Blood 167 mg/dL (60-115)
--- NOTE | 2023-03-22 07:40 | PHA.MEDREC ---
Pharmacy Consult ? Medication Reconciliation Pharmacy has completed the medication reconciliation. MED REC CHECKED FROM [facility]
--- NOTE | 2023-03-22 08:07 | P.CONGS_ITS ---
History of Present Illness Consult details Consult date: 03/21/23 Narrative: Patient presents with a 2-3 day history of progressive worsening epigastric/right upper quadrant pain radiating around his back. Patient has had some associated nausea/ vomiting He has never had this before. Otherwise tolerating a diet. Having normal bowel habits. Never been jaundiced before. Chart was reviewed and patient evaluated. Past medical history most noteworthy for significant morbid obesity (BMI 66), diabetes, hypertension, sleep apnea PMFSH Past Medical History Medical History (Updated 03/21/23 @ 23:57 by Sheryl Garza MD) Diabetes Hypertension Surgical History Surgical History (Updated 03/21/23 @ 23:58 by Sheryl Garza MD) No pertinent past surgical history Social History Social History (Updated 03/21/23 @ 23:58 by Sheryl Garza MD) Household Members: Family Housing: Apartment Alcohol intake: current Alcohol intake frequency: holidays/special occasions only Patient Tobacco Use Status: Never used Tobacco Meds Allergies Allergy/AdvReac Type Severity Reaction Status Date / Time No Known Allergies Allergy Verified 03/21/23 12:52 Active Medications: Current Medications Acetaminophen (Acetaminophen 325 Mg Tablet) 650 mg PO Q6H PRN PRN Reason: Pain, Mild (Pain Scale 1-3) Docusate Sodium (Docusate Sodium 100 Mg Capsule) 100 mg PO DAILY PRN PRN Reason: Constipation Glucose (Glucose Gel 15 Gm Gel..Gram.) 15 gm PO Q15M PRN; Protocol PRN Reason: per Hypoglycemia Standing Ord. Ceftriaxone Sodium 1 gm/ (Sodium Chloride) 50 mls @ 100 mls/hr IV BEDTIME [facility] Last Infusion: 03/22/23 00:49 Dose: Infused Metronidazole (Flagyl) 500 mg in 100 mls @ 100 mls/hr IV Q8H [facility] Last Admin: 03/22/23 08:02 Dose: 100 mls/hr Sodium Chloride (Ns) 1,000 mls @ 80 mls/hr IVCONT .[id number] [facility] Last Admin: 03/22/23 00:18 Dose: 80 mls/hr Dextrose (D10) 250 mls @ 750 mls/hr IV Q15M PRN; Protocol PRN Reason: per Hypoglycemia Standing Ord. Insulin Human Lispro (Insulin Lispro 100 Unit/Ml 3 Ml Vial) 0 unit SUBCUT QIDACHS [facility]; Protocol Last Admin: 03/22/23 08:01 Dose: Not Given Morphine Sulfate (Morphine Sulfate 4 Mg/Ml Cartridge) 4 mg IVPUSH Q4H PRN; Protocol PRN Reason: Pain, Severe (Pain Scale 7-10) Last Admin: 03/22/23 02:30 Dose: 4 mg Ondansetron HCl (Ondansetron Hcl 4 Mg/2 Ml Vial) 4 mg IVPUSH Q8H PRN PRN Reason: Nausea and Vomiting Pharmacy Consult (Consult Rx Perform Med Rec) 1 each MISCELLANE ONCE PRN PRN Reason: Consult order Sodium Chloride (0.9 % Sodium Chloride Flush 3 Ml Syringe) 3 ml IVFLUSH [facility] Last Admin: 03/22/23 08:02 Dose: Not Given Home Medications Medication Instructions Recorded Confirmed Last Taken Type aspirin 81 mg tablet,delayed 81 mg PO DAILY 03/22/23 03/22/23 03/21/23 History release dulaglutide 0.75 mg/0.5 mL 0.75 mg subcut QWEEK diabetes 03/22/23 03/22/23 1 Day Ago [facility] 30 mg tablet 30 mg PO DAILY 03/22/23 03/22/23 03/21/23 History loratadine 10 mg tablet 10 mg PO DAILY 03/22/23 03/22/23 03/21/23 History pantoprazole 20 mg tablet,delayed 20 mg PO DAILY 03/22/23 03/22/23 03/21/23 History release Physical Exam Vital Signs: Vital Signs: Last Vital Signs Temp 98.9 F 03/22/23 07:26 Pulse 88 03/22/23 07:26 Resp 22 H 03/22/23 07:26 BP 139/62 03/22/23 07:26 Pulse Ox 95 03/22/23 07:26 O2 Del Method Room Air 03/22/23 07:26 BMI result Body Mass Index 65.6 Chest: Other: Chest breath sounds bilaterally, HS 1 in 2 GI: Other: Very profoundly corpulent abdomen. Marked Right upper quadrant tenderness. Incidental finding of umbilical hernia. Results Labs 03/22/23 05:10 03/22/23 05:10 Labs: Abnormal lab results 03/21/23 03/21/23 03/22/23 Range/Units 13:06 13:06 05:10 WBC 12.8 H 13.2 H (4.8-10.8) X10*3/uL Hct 41.6 L (42.0-52.0) % Immature Gran % (Auto) 1.6 H (0.0-0.4) % Neut % (Auto) 77.4 H (45-73) % Lymph % (Auto) 10.0 L 12.5 L (20-40) % [place] % (Auto) 11.6 H 13.7 H (2-11) % [place] # (Auto) 1.5 H 1.8 H (0.1-1.2) X10*3/uL Abs Immat Gran (auto) 0.05 H 0.21 H (0.00-0.03) X10*3/uL Absolute Neuts (auto) 9.9 H 9.4 H (2.0-8.3) x10*3/uL PT (10.0-13.1) SEC INR (0.9-1.1) Sodium 132 L (135-145) mmol/L BUN 7 L (9-16) mg/dL POC Glucose (60-115) mg/dL Random Glucose 194 H (60-115) mg/dL Total Bilirubin 1.6 H (0.0-1.0) mg/dL Direct Bilirubin (0.0-0.5) mg/dL ALT 45 H (0-40) U/L 03/22/23 03/22/23 03/22/23 Range/Units 05:10 05:10 07:29 WBC (4.8-10.8) X10*3/uL Hct (42.0-52.0) % Immature Gran % (Auto) (0.0-0.4) % Neut % (Auto) (45-73) % Lymph % (Auto) (20-40) % [place] % (Auto) (2-11) % [place] # (Auto) (0.1-1.2) X10*3/uL Abs Immat Gran (auto) (0.00-0.03) X10*3/uL Absolute Neuts (auto) (2.0-8.3) x10*3/uL PT 13.9 H (10.0-13.1) SEC INR 1.2 H (0.9-1.1) Sodium 132 L (135-145) mmol/L BUN 7 L (9-16) mg/dL POC Glucose 167 H (60-115) mg/dL Random Glucose 174 H (60-115) mg/dL Total Bilirubin 1.9 H (0.0-1.0) mg/dL Direct Bilirubin 0.6 H (0.0-0.5) mg/dL ALT (0-40) U/L Short CBC 03/21/23 03/22/23 Range/Units 13:06 05:10 WBC 12.8 H 13.2 H (4.8-10.8) X10*3/uL Hgb 15.3 14.4 (14.0-18.0) g/dl Hct 43.8 41.6 L (42.0-52.0) % Plt Count 207 211 (160-400) X10*3/uL BMP 03/21/23 03/22/23 13:06 05:10 Sodium 132 L 132 L Potassium 4.2 3.8 Chloride 100 101 Carbon Dioxide 24 23 BUN 7 L 7 L Creatinine 0.73 0.72 Calcium 9.2 8.7 Liver Function 03/21/23 03/22/23 Range/Units 13:06 05:10 Total Bilirubin 1.6 H 1.9 H (0.0-1.0) mg/dL Direct Bilirubin 0.4 0.6 H (0.0-0.5) mg/dL AST 32 24 (5-37) U/L ALT 45 H 33 (0-40) U/L Alkaline Phosphatase 90 79 (39-117) U/L Albumin 4.2 3.7 (3.5-5.0) g/dL Urine 03/21/23 Range/Units 16:29 Urine Color Yellow Urine Appearance Clear Urine pH 7.5 (5.0-9.0) Ur Specific [place] 1.010 (1.005-1.025) Urine Protein Negative (Neg-Trace) mg/dL Urine Glucose (UA) Negative (Negative) mg/dL All other labs normal. Assessment and Plan (1) Acute cholecystitis: Status: Acute (2) Cholelithiasis: Status: Acute Plan History, physical exam, sonographic findings consistent with acute cholecystitis. Risks, benefits, alternatives of laparoscopic possible open cholecystectomy were reviewed with the patient and included but not limited to bleeding, infection, recurrence of symptoms, numbness, pain, scarring, conversion to open procedure, duct or bowel injury or leak, and the patient wishes to proceed. All questions were answered. Arrangements were made for this as a add on case for today. Time Spent With Patient Time: Total time managing care of this patient today ____ minutes. Procedures Date of Service Date of Service: 03/22/23
[2023-03-22 10:44] LABS: Glucose, Whole Blood 194 mg/dL (60-115)
--- NOTE | 2023-03-22 13:01 | HO.ANESPROP2 ---
HPI - Anesthesia Eval Consult details Narrative: for lap. cholecystectomy PMFSH Active Problems Active Problems: All Active Problems (Updated 03/21/23 @ 23:57 by Sheryl Garza MD) Acute cholecystitis (Acute) Abdominal pain (Acute) Cholelithiasis (Acute) Nausea & vomiting (Acute) Past Medical History Medical History (Updated 03/21/23 @ 23:57 by Sheryl Garza MD) Diabetes Hypertension Family History Family history of problems with anesthesia: No Surgical History Surgical History (Updated 03/21/23 @ 23:58 by Sheryl Garza MD) No pertinent past surgical history History of Problems with Anesthesia: No Social History Social History (Updated 03/21/23 @ 23:58 by Sheryl Garza MD) Household Members: Family Housing: Apartment Alcohol intake: current Alcohol intake frequency: does not drink Patient Tobacco Use Status: Never used Tobacco Second Hand Smoke Exposure: No Meds Allergies Allergy/AdvReac Type Severity Reaction Status Date / Time No Known Allergies Allergy Verified 03/21/23 12:52 Active Medications: Current Medications Acetaminophen (Acetaminophen 325 Mg Tablet) 650 mg PO Q6H PRN PRN Reason: Pain, Mild (Pain Scale 1-3) Docusate Sodium (Docusate Sodium 100 Mg Capsule) 100 mg PO DAILY PRN PRN Reason: Constipation Glucose (Glucose Gel 15 Gm Gel..Gram.) 15 gm PO Q15M PRN; Protocol PRN Reason: per Hypoglycemia Standing Ord. Ceftriaxone Sodium 1 gm/ (Sodium Chloride) 50 mls @ 100 mls/hr IV BEDTIME [facility] Last Infusion: 03/22/23 00:49 Dose: Infused Metronidazole (Flagyl) 500 mg in 100 mls @ 100 mls/hr IV Q8H [facility] Last Infusion: 03/22/23 09:23 Dose: Infused Sodium Chloride (Ns) 1,000 mls @ 80 mls/hr IVCONT .[id number] [facility] Last Admin: 03/22/23 10:45 Dose: Not Given Dextrose (D10) 250 mls @ 750 mls/hr IV Q15M PRN; Protocol PRN Reason: per Hypoglycemia Standing Ord. Insulin Human Lispro (Insulin Lispro 100 Unit/Ml 3 Ml Vial) 0 unit SUBCUT QIDACHS [facility]; Protocol Last Admin: 03/22/23 10:45 Dose: Not Given Loratadine (Loratadine 10 Mg Tablet) 10 mg PO DAILY [facility] Last Admin: 03/22/23 10:30 Dose: Not Given Morphine Sulfate (Morphine Sulfate 4 Mg/Ml Cartridge) 4 mg IVPUSH Q4H PRN; Protocol PRN Reason: Pain, Severe (Pain Scale 7-10) Last Admin: 03/22/23 02:30 Dose: 4 mg Omeprazole (Omeprazole 20 Mg Capsule.Dr) 20 mg PO DAILY@0630 [facility] Ondansetron HCl (Ondansetron Hcl 4 Mg/2 Ml Vial) 4 mg IVPUSH Q8H PRN PRN Reason: Nausea and Vomiting Pharmacy Consult (Consult Rx Perform Med Rec) 1 each MISCELLANE ONCE PRN PRN Reason: Consult order Sodium Chloride (0.9 % Sodium Chloride Flush 3 Ml Syringe) 3 ml IVFLUSH [facility] Last Admin: 03/22/23 08:02 Dose: Not Given Sodium Chloride (0.9 % Sodium Chloride Flush 3 Ml Syringe) 3 ml IVFLUSH [facility] Home Medications Medication Instructions Recorded Confirmed Last Taken Type aspirin 81 mg tablet,delayed 81 mg PO DAILY 03/22/23 03/22/23 03/21/23 History release dulaglutide 0.75 mg/0.5 mL 0.75 mg subcut QWEEK diabetes 03/22/23 03/22/23 1 Day Ago History subcutaneous pen injector ~03/21/23 ([facility]) lisinopril 30 mg tablet 30 mg PO DAILY 03/22/23 03/22/23 03/21/23 History loratadine 10 mg tablet 10 mg PO DAILY 03/22/23 03/22/23 03/21/23 History pantoprazole 20 mg tablet,delayed 20 mg PO DAILY 03/22/23 03/22/23 03/21/23 History release Exam Exam Date and Time: March 22, 2023 130 Height,Weight and Vital Signs: Height 5 ft 11 in Weight 213.5 kg Last Vital Signs Temp 99.3 F 03/22/23 10:43 Pulse 97 03/22/23 10:43 Resp 18 03/22/23 10:43 BP 139/78 03/22/23 10:43 Pulse Ox 95 03/22/23 10:43 O2 Del Method Room Air 03/22/23 10:43 Pertinent Lab Results Pertinent Lab Results: Laboratory Tests 03/21/23 03/21/23 03/21/23 13:06 13:06 13:06 WBC 12.8 H RBC 5.16 Hgb 15.3 Hct 43.8 MCV 84.9 MCH 29.7 MCHC 34.9 RDW 12.3 Plt Count 207 MPV 9.8 Immature Gran % (Auto) 0.4 Neut % (Auto) 77.4 H Lymph % (Auto) 10.0 L [place] % (Auto) 11.6 H Eos % (Auto) 0.3 Baso % (Auto) 0.3 Lymph # (Auto) 1.3 [place] # (Auto) 1.5 H Eos # (Auto) 0.0 Baso # (Auto) 0.0 Abs Immat Gran (auto) 0.05 H Absolute Neuts (auto) 9.9 H Absolute Nucleated RBC 0.000 Nucleated RBC % (auto) 0.0 Smear Tech's Comments VERIFIED PT INR Sodium 132 L Potassium 4.2 Chloride 100 Carbon Dioxide 24 Anion Gap 12 BUN 7 L Creatinine 0.73 Estim Creat Clear Calc 235.5 Estimated GFR > 60 POC Glucose Random Glucose 194 H Calcium 9.2 Total Bilirubin 1.6 H Direct Bilirubin 0.4 AST 32 ALT 45 H Alkaline Phosphatase 90 Total Protein 7.8 Albumin 4.2 Lipase 30 Urine Color Urine Appearance Urine pH Ur Specific [place] Urine Protein Urine Glucose (UA) Urine Ketones Urine Blood Urine Nitrite Ur Leukocyte Esterase COVID-19 (ALESSANDRA) Negative COVID-19 Clin Com See Note 03/21/23 03/22/23 03/22/23 16:29 05:10 05:10 WBC 13.2 H RBC 4.78 Hgb 14.4 Hct 41.6 L MCV 87.0 MCH 30.1 MCHC 34.6 RDW 12.4 Plt Count 211 MPV 10.0 Immature Gran % (Auto) 1.6 H Neut % (Auto) 71.0 Lymph % (Auto) 12.5 L [place] % (Auto) 13.7 H Eos % (Auto) 0.7 Baso % (Auto) 0.5 Lymph # (Auto) 1.7 [place] # (Auto) 1.8 H Eos # (Auto) 0.1 Baso # (Auto) 0.1 Abs Immat Gran (auto) 0.21 H Absolute Neuts (auto) 9.4 H Absolute Nucleated RBC 0.000 Nucleated RBC % (auto) 0.0 Smear Tech's Comments VERIFIED PT INR Sodium 132 L Potassium 3.8 Chloride 101 Carbon Dioxide 23 Anion Gap 12 BUN 7 L Creatinine 0.72 Estim Creat Clear Calc 236.7 Estimated GFR > 60 POC Glucose Random Glucose 174 H Calcium 8.7 Total Bilirubin 1.9 H Direct Bilirubin 0.6 H AST 24 ALT 33 Alkaline Phosphatase 79 Total Protein 6.8 Albumin 3.7 Lipase Urine Color Yellow Urine Appearance Clear Urine pH 7.5 Ur Specific [place] 1.010 Urine Protein Negative Urine Glucose (UA) Negative Urine Ketones Negative Urine Blood Negative Urine Nitrite Negative Ur Leukocyte Esterase Negative COVID-19 (ALESSANDRA) COVID-19 [facility] Com 03/22/23 03/22/23 03/22/23 05:10 07:29 10:41 WBC RBC Hgb Hct MCV MCH MCHC RDW Plt Count MPV Immature Gran % (Auto) Neut % (Auto) Lymph % (Auto) [place] % (Auto) Eos % (Auto) Baso % (Auto) Lymph # (Auto) [place] # (Auto) Eos # (Auto) Baso # (Auto) Abs Immat Gran (auto) Absolute Neuts (auto) Absolute Nucleated RBC Nucleated RBC % (auto) Smear Tech's Comments PT 13.9 H INR 1.2 H Sodium Potassium Chloride Carbon Dioxide Anion Gap BUN Creatinine Estim Creat Clear Calc Estimated GFR POC Glucose 167 H 194 H Random Glucose Calcium Total Bilirubin Direct Bilirubin AST ALT Alkaline Phosphatase Total Protein Albumin Lipase Urine Color Urine Appearance Urine pH Ur Specific [place] Urine Protein Urine Glucose (UA) Urine Ketones Urine Blood Urine Nitrite Ur Leukocyte Esterase COVID-19 (ALESSANDRA) COVID-19 Clin Com Airway Mallampati Class: IV TM Dist: <=3cm (no neck) Neck ROM: Limited Heart: ok. Lungs: ok, Sat 96% on room air Assessment and Plan Assessment Anesthesia Assessment: Anesthesia Plan Discussed and Chart Reviewed Final Anesthetic Review Family History of Problems with Anesthesia: No History of Problems with Anesthesia: No NPO: Yes ASA Class: IV Final Preanesthetic Review: No Changes in Pt Med Stat, Meds/Allgs Chart Reviewed, Consent Obtained/Reviewed and Anes Risks/Benef Reviewed Patient Risk: High Procedure Risk: Intermediate Anesthetic Plan Anesthetic Plan: GA and Agree w/ Assess. and Plan Disposition: Standard PACU
--- NOTE | 2023-03-22 13:59 | HO.PM.IMPN ---
Subjective Subjective Date of Service: 03/23/23 Interval History: abdominal pain Review of Systems abd pain seems somewhat improving Denies any nausea or vomiting Physical Exam Vital Signs: Vital Signs: Last Vital Signs Temp 99.3 F 03/22/23 10:43 Pulse 97 03/22/23 10:43 Resp 18 03/22/23 10:43 BP 139/78 03/22/23 10:43 Pulse Ox 95 03/22/23 10:43 O2 Del Method Room Air 03/22/23 10:43 BMI result Body Mass Index 65.6 Appearance: Alert.? Oriented X3.? not in distress.?. cvs: rrr, [id number] . res: clear to auscultation ,no rhonchii or wheezing abd: no rebound or guarding ,mild ruq discomfort improving, bs present. ext pulses present , no cyanosis . neuro: axo3 , nonfocal. Objective Data Active Medications Acetaminophen (Acetaminophen 325 Mg Tablet) 650 mg PO Q6H PRN PRN Reason: Pain, Mild (Pain Scale 1-3) Docusate Sodium (Docusate Sodium 100 Mg Capsule) 100 mg PO DAILY PRN PRN Reason: Constipation Fentanyl (Fentanyl Citrate/Pf 100 Mcg/2 Ml Vial) 50 mcg IVPUSH Q5M PRN; Protocol PRN Reason: Pain, Severe (Pain Scale 7-10) Glucose (Glucose Gel 15 Gm Gel..Gram.) 15 gm PO Q15M PRN; Protocol PRN Reason: per Hypoglycemia Standing Ord. Hydromorphone HCl (Hydromorphone Hcl 0.5 Mg/0.5 Ml Syringe) 0.5 mg IVPUSH Q5M PRN; Protocol PRN Reason: Pain, Severe (Pain Scale 7-10) Ceftriaxone Sodium 1 gm/ (Sodium Chloride) 50 mls @ 100 mls/hr IV BEDTIME [facility] Last Infusion: 03/22/23 00:49 Dose: 0 mls/hr Documented By: LLUVIA Metronidazole (Flagyl) 500 mg in 100 mls @ 100 mls/hr IV Q8H [facility] Last Infusion: 03/22/23 09:23 Dose: 0 mls/hr Documented By: AVINASH Sodium Chloride (Ns) 1,000 mls @ 80 mls/hr IVCONT .[id number] [facility] Last Admin: 03/22/23 10:45 Dose: Not Given Documented By: AVINASH Non-Admin Reason: Off Unit: Surgery Dextrose (D10) 250 mls @ 750 mls/hr IV Q15M PRN; Protocol PRN Reason: per Hypoglycemia Standing Ord. Insulin Human Lispro (Insulin Lispro 100 Unit/Ml 3 Ml Vial) 0 unit SUBCUT QIDACHS [facility]; Protocol Last Admin: 03/22/23 10:45 Dose: Not Given Documented By: AVINASH Non-Admin Reason: Off Unit: Surgery Loratadine (Loratadine 10 Mg Tablet) 10 mg PO DAILY [facility] Last Admin: 03/22/23 10:30 Dose: Not Given Documented By: AVINASH Non-Admin Reason: Off Unit: Surgery Morphine Sulfate (Morphine Sulfate 4 Mg/Ml Cartridge) 4 mg IVPUSH Q4H PRN; Protocol PRN Reason: Pain, Severe (Pain Scale 7-10) Last Admin: 03/22/23 02:30 Dose: 4 mg Documented By: PEREZ Omeprazole (Omeprazole 20 Mg Capsule.Dr) 20 mg PO DAILY@0630 [facility] Ondansetron HCl (Ondansetron Hcl 4 Mg/2 Ml Vial) 4 mg IVPUSH Q8H PRN PRN Reason: Nausea and Vomiting Ondansetron HCl (Ondansetron Hcl 4 Mg/2 Ml Vial) 4 mg IVPUSH ONCE PRN PRN Reason: Nausea and Vomiting Pharmacy Consult (Consult Rx Perform Med Rec) 1 each MISCELLANE ONCE PRN PRN Reason: Consult order Sodium Chloride (0.9 % Sodium Chloride Flush 3 Ml Syringe) 3 ml IVFLUSH [facility] Last Admin: 03/22/23 08:02 Dose: Not Given Documented By: AVINASH Non-Admin Reason: IV Running Sodium Chloride (0.9 % Sodium Chloride Flush 3 Ml Syringe) 3 ml IVFLUSH QSMOFT [facility] Labs 03/22/23 05:10 03/22/23 05:10 Labs: Laboratory Results - last 24 hr 03/21/23 03/22/23 03/22/23 16:29 05:10 05:10 MCV 87.0 MCH 30.1 MCHC 34.6 RDW 12.4 Plt Count 211 MPV 10.0 Immature Gran % (Auto) 1.6 H Neut % (Auto) 71.0 Lymph % (Auto) 12.[address] [place] % (Auto) 13.7 H Eos % (Auto) 0.7 Baso % (Auto) 0.5 Lymph # (Auto) 1.7 [place] # (Auto) 1.8 H Eos # (Auto) 0.1 Baso # (Auto) 0.1 Abs Immat Gran (auto) 0.21 H Absolute Neuts (auto) 9.4 H Absolute Nucleated RBC 0.000 Nucleated RBC % (auto) 0.0 Smear Tech's Comments VERIFIED PT INR Anion Gap 12 Estim Creat Clear Calc 236.7 Estimated GFR > 60 POC Glucose Random Glucose 174 H Calcium 8.7 Total Bilirubin 1.9 H Direct Bilirubin 0.6 H AST 24 ALT 33 Alkaline Phosphatase 79 Total Protein 6.8 Albumin 3.7 Urine Color Yellow Urine Appearance Clear Urine pH 7.5 Ur Specific [place] 1.010 Urine Protein Negative Urine Glucose (UA) Negative Urine Ketones Negative Urine Blood Negative Urine Nitrite Negative Ur Leukocyte Esterase Negative 03/22/23 03/22/23 03/22/23 05:10 07:29 10:41 MCV MCH MCHC RDW Plt Count MPV Immature Gran % (Auto) Neut % (Auto) Lymph % (Auto) [place] % (Auto) Eos % (Auto) Baso % (Auto) Lymph # (Auto) [place] # (Auto) Eos # (Auto) Baso # (Auto) Abs Immat Gran (auto) Absolute Neuts (auto) Absolute Nucleated RBC Nucleated RBC % (auto) Smear Tech's Comments PT 13.9 H INR 1.2 H Anion Gap Estim Creat Clear Calc Estimated GFR POC Glucose 167 H 194 H Random Glucose Calcium Total Bilirubin Direct Bilirubin AST ALT Alkaline Phosphatase Total Protein Albumin Urine Color Urine Appearance Urine pH Ur Specific [place] Urine Protein Urine Glucose (UA) Urine Ketones Urine Blood Urine Nitrite Ur Leukocyte Esterase Assessment and Plan (1) Acute cholecystitis: Status: Acute (2) Abdominal pain: Status: Acute Plan 47-year-old male with past medical history of diabetes, hypertension presents to the hospital with complaints of abdominal pain found to have likely ?acute cholecystitis #? abdominal pain, nausea vomiting -? pain in the right upper quadrant, with abnormal findings on the ultrasound of the abdomen suggestive of acute cholecystitis -? general surgery was consulted, they recommended HIDA scan and admission to general medical -? will treat with IV antibiotics -? keep NPO -? general surgery consult-plan for surgery -? HIDA scan in the morning -? follow cultures #? diabetes -? low-dose sliding scale insulin -? diabetic diet #? hypertension -? stable -? will resume home antihypertensives ?ongoing hospital stay-possible acute cholecystsitis- IV antibiotics,possible surgery Time Spent With Patient Time: Total time managing care of this patient today ____ minutes. Quality Stroke Does the patient have a stroke diagnosis?: No VTE Prior VTE?: No VTE Risk Level:: Medical - moderate - high VTE Device Contraindication: N/A - Device Ordered VTE Drug Contraindication: Treatment Not Indicated
--- NOTE | 2023-03-22 14:08 | MHC.CM.PN ---
PATIENT CURRENTLY OFF UNIT PER REVIEW OF CHART, DOWN IN O.R. CASE MANAGEMENT NAME AND PLAN WRITTEN ON WHITE BOARD. CASE MANAGEMENT TO RETURN WHEN PATIENT RETURNS.
--- NOTE | 2023-03-22 14:57 | W.PM.OPN ---
Operative Note Operative Note Date of Service: 03/22/23 Narrative: Preoperative diagnosis: [] Acute cholecystitis Postop diagnosis: [] Acute phlegmonous suppurative cholecystitis Procedure [] laparoscopic cholecystectomy Surgeon: [] Barry Environmental Journalist: [] ariel Davis Type of Anesthesia: [] General Indication for surgery: [] Markedly phlegmonous gangrenous pus filled gallbladder. Omental adhesions to the gallbladder. Very intrahepatic gallbladder. Morbidly obese patient (BMI 66), extremely corpulent abdomen Findings: [] Patient brought to the operating room, placed on operative table in supine position, after adequate level of general anesthesia was induced, the patient's abdomen which was quite corpulent was prepped and draped in usual sterile fashion. Using an upper midline curvilinear incision, Irving technique was used to insufflated normal cavity to 15 mm of CO2. Upper midline and right subcostal ports were placed under direct laparoscopic view, and the patient was placed in reverse Trendelenburg position, and tilted to the left. Omental adhesions were swept off the gallbladder and a markedly turgid gangrenous gallbladder was identified. This was decompressed with an aspirating device so it could be grasped with laparoscopic graspers and the gallbladder was then retracted superiorly and laterally. Dense omental adhesions were swept off the gallbladder. Hilum of the gallbladder, which was markedly edematous and inflamed, was approached with the cystic artery and cystic duct sequentially identified, each circumferentially dissected out, each traced directly into the gallbladder and critical view obtained. Consideration for cholangiogram was undertaken but because of the massive size of the patient, the cholangiocatheter would not have reached the cystic duct for this study. Each was clipped proximally x2, distally x1, and transected. Markedly intrahepatic phlegmonous gallbladder was then cauterized from the gallbladder fossa using Bovie. Gallbladder was placed in an Endo-Catch bag, a retrieved through the upper midline port. Abdominal cavity was very copiously irrigated and secured hemostasis. A And[place] drain was left in the gallbladder fossa and exited the right lateral subcostal port. This was secured to the skin using 2-0 nylon. All ports were removed under direct laparoscopic view. Wounds were closed in the following manner; upper midline incision had its fascia reapproximated using interrupted 0 Vicryl sutures. Skin wounds were closed using subcuticular 4-0 Vicryl sutures followed by Steri-Strips and sterile dressings. Wounds were treated 0.5% Marcaine at completion. Sponge, needle, and instrument counts were reported to be correct. Patient tolerated the procedure well and emerged from anesthesia stable condition. EBL minimum.
--- NOTE | 2023-03-22 15:49 | PM.EVENT ---
Event Note Date of Service: 03/22/23 Event Note: GI consult dictated RUQ pain with mild lft elevations. CCY today Follow lfts. Time Spent With Patient Time: Total time managing care of this patient today ____ minutes.
[2023-03-22 16:47] LABS: Glucose, Whole Blood 203 mg/dL (60-115)
[2023-03-22] MEDS: Insulin Lispro 100 UNIT/ML 3 ML VIAL SUBCUT ×2 (17:26→21:04)
[2023-03-22 20:28] LABS: Glucose, Whole Blood 222 mg/dL (60-115)
[2023-03-22] MEDS: Docusate Sodium 100 MG CAPSULE PO (21:04)
[2023-03-22] MEDS: 0.9 % Sodium Chloride Flush 3 ML SYRINGE IVFLUSH (21:09)
--- NOTE | 2023-03-22 22:26 | CONS_ITS ---
DATE OF SERVICE: 03/22/2023 REASON FOR CONSULTATION: Abdominal pain and elevated liver function tests. HISTORY OF PRESENT ILLNESS: The patient is a pleasant 47-year-old man, who was admitted to the hospital after presenting to the emergency room yesterday with complaints of right upper quadrant pain for 3 days. The pain was associated with nausea and nonbloody emesis without associated fevers, chills, or jaundice. He was evaluated in the emergency room with ultrasound imaging and seen in consultation by General surgery after ultrasound imaging showed cholelithiasis with mild gallbladder tenderness. Liver function tests on admission were slightly elevated with a total bilirubin of 1.6, AST of 32, and ALT of 45. Repeat liver function tests this morning showed normalization of the transaminases and a normal alkaline phosphatase. The patient is scheduled for laparoscopic cholecystectomy later today. PAST MEDICAL HISTORY: 1. Gallstones. 2. Obstructive sleep apnea. 3. Diabetes. 4. Hypertension. 5. Elevated BMI. CURRENT MEDICATIONS: His current medication list is reviewed in the chart. ALLERGIES: THERE ARE NONE REPORTED. FAMILY HISTORY: This is reviewed with the patient and is noncontributory. SOCIAL HISTORY: There is no current tobacco, alcohol, or substance abuse. REVIEW OF SYSTEMS: SKIN: No pruritus. HEENT: Negative. CARDIOPULMONARY: No shortness of breath or chest pain. GASTROINTESTINAL: As above. GENITOURINARY: Negative. NEUROPSYCHIATRIC: Negative. PHYSICAL EXAMINATION: GENERAL: Shows a pleasant male, lying comfortably in bed. VITAL SIGNS: Reviewed in electronic medical record and are stable. SKIN: Anicteric. HEENT: Shows no scleral icterus. NECK: Without lymphadenopathy or thyromegaly. LUNGS: Clear. HEART: Shows regular rate and rhythm S1, S2. No murmur. ABDOMEN: Soft. There is tenderness to palpation over the right upper quadrant. Bowel sounds are present. No organomegaly is noted. EXTREMITIES: Without edema. LABORATORY DATA: Reviewed. IMPRESSION: Right upper quadrant pain with elevated liver function tests. His liver function tests appear to be improving and may reflect some underlying pericholecystic inflammatory change or fatty liver. At this time, he is being scheduled for cholecystectomy and we will await the results of his surgery. I would recommend monitoring his liver function tests. Because of his elevated BMI, obtaining an MRI would be difficult. Thanks for asking me to see him. I will follow him in the hospital with you. MD SARAH Gooden/CHARLA / [phone] [place]TD[place]
[2023-03-23] MEDS: Acetaminophen 325 MG TABLET 650 MG PO (04:06)
[2023-03-23] MEDS: oxyCODONE HCl Immed Release 5 MG TABLET 10 MG PO (04:07)
[2023-03-23] MEDS: Omeprazole 20 MG CAPSULE.DR PO (05:22)
[2023-03-23] MEDS: 0.9 % Sodium Chloride 1,000 ML 80 ML IVCONT ×3 (05:22→21:31)
[2023-03-23 05:41] VITALS: BP 154/71; PULSE 108; RESP 20; TEMP 37.8; O2SAT 93
[2023-03-23 07:06] LABS: Alanine Aminotransferase 110 U/L (0-40); Albumin Level 3.7 g/dL (3.5-5.0); Alkaline Phosphatase 96 U/L (39-117); Aspartate Amino Transferase 127 U/L (5-37); Bilirubin Direct 0.7 mg/dL (0.0-0.5); Total Protein 6.9 g/dL (6.5-8.0)
[2023-03-23 07:24] VITALS: BP 140/70; PULSE 99; RESP 19; TEMP 37.4; O2SAT 93
[2023-03-23 07:39] LABS: Glucose, Whole Blood 186 mg/dL (60-115)
--- NOTE | 2023-03-23 07:59 | HO.POSTANES ---
Post Anesthesia Evaluation Post Anesthesia Evaluation Vital Signs: Vital Signs Temp Pulse Resp BP Pulse Ox O2 Del Method 03/23/23 07:24 99.4 F 99 19 140/70 H 93 CPAP 03/23/23 05:41 100.0 F 108 H 20 154/71 H 93 Room Air 03/22/23 23:25 98.9 F 89 18 185/69 H 93 CPAP Anesthesia: General Endotracheal-GETA Mental Status: Awake Pain Control: Satisfactory Nausea/Vomiting: None Hydration: Adequate Anesthesia-Related Issues: No Anes. Related Issues
[2023-03-23] MEDS: Loratadine 10 MG TABLET PO (08:17)
[2023-03-23] MEDS: Insulin Lispro 100 UNIT/ML 3 ML VIAL SUBCUT ×4 (08:17→21:32)
[2023-03-23] MEDS: Docusate Sodium 100 MG CAPSULE PO ×2 (08:17→21:32)
[2023-03-23] MEDS: metroNIDAZOLE/NS 500 MG/100 ML PIGGYBACK 100 MG IV ×3 (08:19→23:08)
--- NOTE | 2023-03-23 08:19 | PM.PNGS ---
Subjective Subjective Date of Service: 03/23/23 Interval history: Uneventful evening. Patient has mild incisional discomfort otherwise doing well. ARIEL drain minimal output. Still elevation of bilirubin from 1.9 to-2.0 this morning. Physical Exam Vital Signs: Vital Signs: Last Vital Signs Temp 99.4 F 03/23/23 07:24 Pulse 99 03/23/23 07:24 Resp 19 03/23/23 07:24 BP 140/70 H 03/23/23 07:24 Pulse Ox 93 03/23/23 07:24 O2 Del Method CPAP 03/23/23 07:24 O2 Flow Rate 2 03/22/23 16:17 BMI result Body Mass Index 65.6 GI: Other: Abdomen dressings all clean dry and intact. ARIEL drain scan output serous. Objective Data Active Medications Acetaminophen (Acetaminophen 325 Mg Tablet) 650 mg PO Q6H PRN PRN Reason: Pain, Mild (Pain Scale 1-3) Last Admin: 03/23/23 04:06 Dose: 650 mg Documented By: BRUNO Docusate Sodium (Docusate Sodium 100 Mg Capsule) 100 mg PO BID [facility] Last Admin: 03/22/23 21:04 Dose: 100 mg Documented By: ULISSES Glucose (Glucose Gel 15 Gm Gel..Gram.) 15 gm PO Q15M PRN; Protocol PRN Reason: per Hypoglycemia Standing Ord. Ceftriaxone Sodium 1 gm/ (Sodium Chloride) 50 mls @ 100 mls/hr IV BEDTIME [facility] Last Infusion: 03/22/23 21:35 Dose: 0 mls/hr Documented By: ULISSES Metronidazole (Flagyl) 500 mg in 100 mls @ 100 mls/hr IV Q8H [facility] Last Infusion: 03/23/23 00:20 Dose: 0 mls/hr Documented By: ULISSES Sodium Chloride (Ns) 1,000 mls @ 80 mls/hr IVCONT .[id number] [facility] Last Admin: 03/23/23 05:22 Dose: 80 mls/hr Documented By: ULISSES Dextrose (D10) 250 mls @ 750 mls/hr IV Q15M PRN; Protocol PRN Reason: per Hypoglycemia Standing Ord. Insulin Human Lispro (Insulin Lispro 100 Unit/Ml 3 Ml Vial) 0 unit SUBCUT QIDACHS [facility]; Protocol Last Admin: 03/22/23 21:04 Dose: 4 unit Documented By: ULISSES Loratadine (Loratadine 10 Mg Tablet) 10 mg PO DAILY [facility] Last Admin: 03/22/23 10:30 Dose: Not Given Documented By: AVINASH Non-Admin Reason: Off Unit: Surgery Morphine Sulfate (Morphine Sulfate 4 Mg/Ml Cartridge) 4 mg IVPUSH Q4H PRN; Protocol PRN Reason: Pain, Severe (Pain Scale 7-10) Last Admin: 03/22/23 21:15 Dose: 4 mg Documented By: ULISSES Omeprazole (Omeprazole 20 Mg Capsule.Dr) 20 mg PO DAILY@0630 [facility] Last Admin: 03/23/23 05:22 Dose: 20 mg Documented By: ULISSES Ondansetron HCl (Ondansetron Hcl 4 Mg/2 Ml Vial) 4 mg IVPUSH Q8H PRN PRN Reason: Nausea and Vomiting Oxycodone HCl (Oxycodone Hcl Immed Release 5 Mg Tablet) 5 mg PO Q4H PRN PRN Reason: Pain, Moderate(Pain Scale 4-6) Oxycodone HCl (Oxycodone Hcl Immed Release 5 Mg Tablet) 10 mg PO Q4H PRN PRN Reason: Pain, Severe (Pain Scale 7-10) Last Admin: 03/23/23 04:07 Dose: 10 mg Documented By: BRUNO Pharmacy Consult (Consult Rx Perform Med Rec) 1 each MISCELLANE ONCE PRN PRN Reason: Consult order Sodium Chloride (0.9 % Sodium Chloride Flush 3 Ml Syringe) 3 ml IVFLUSH QSFLFT [facility] Last Admin: 03/22/23 21:09 Dose: 3 ml Documented By: ULISSES Sodium Chloride (0.9 % Sodium Chloride Flush 3 Ml Syringe) [facility] Last Admin: 03/22/23 21:09 Dose: Not Given Documented By: ULISSES Non-Admin Reason: Duplicate Order Labs 03/22/23 05:10 03/22/23 05:10 Labs: Laboratory Results - last 24 hr 03/22/23 03/22/23 03/22/23 10:41 16:44 20:17 POC Glucose 194 H 203 H 222 H Total Bilirubin Direct Bilirubin AST ALT Alkaline Phosphatase Total Protein Albumin 03/23/23 03/23/23 05:44 07:26 POC Glucose 186 H Total Bilirubin 2.0 H Direct Bilirubin 0.7 H AST 127 H ALT 110 H Alkaline Phosphatase 96 Total Protein 6.9 Albumin 3.7 Microbiology Microbiology Results: Microbiology 03/22/23 00:08 Blood Culture - Preliminary Blood - Venous No growth after 24 hours. 03/22/23 00:08 Blood Culture - Preliminary Blood - Venous No growth after 24 hours. Procedures Date of Service Date of Service: 03/23/23 Progress Note: A&P Assessment and plan (1) Acute cholecystitis: Status: Acute (2) Cholelithiasis: Status: Acute Plan Out of bed with assistance, incentive spirometry, ice pack to wound, repeat LFTs in the morning, diet as tolerated. Consider ARIEL drain removal soon Time Spent With Patient Time: Total time managing care of this patient today ____ minutes. Quality Stroke Does the patient have a stroke diagnosis?: No VTE Prior VTE?: No VTE Risk Level:: Medical - moderate - high VTE Device Contraindication: N/A - Device Ordered VTE Drug Contraindication: Treatment Not Indicated
[2023-03-23] MEDS: 0.9 % Sodium Chloride Flush 3 ML SYRINGE IVFLUSH (08:29)
[2023-03-23 11:36] LABS: Glucose, Whole Blood 240 mg/dL (60-115)
--- NOTE | 2023-03-23 12:06 | MHC.CM.PN ---
PATIENT LIVES WITH FAMILY. 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 HE USES A CANE, WALKER, AND CPAP @ NIGHT. PATIENT REPORTS THAT HE HAS HAD STUDENT TEACHING COORDINATOR SERVICES FOR ONE YEAR, AND IS DUE FOR AN ASSESSMENT OF ANY FURTHER NEEDS. HE IS OPEN TO [facility] REFERRAL IF INDICATED DC NEARS. CURRENTLY HAS ARIEL DRAIN WITH OUTPUT. CASE MANAGEMENT FOLLOWING
--- NOTE | 2023-03-23 14:00 | P.PNIM_ITS ---
Subjective Subjective Date of Service: 03/24/23 Interval History: Acute cholecystitis Review of Systems abd pain -less soarness no fever or chills Physical Exam Vital Signs: Vital Signs: Last Vital Signs Temp 99.4 F 03/23/23 07:24 Pulse 99 03/23/23 07:24 Resp 19 03/23/23 07:24 BP 140/70 H 03/23/23 07:24 Pulse Ox 93 03/23/23 07:24 O2 Del Method CPAP 03/23/23 07:24 O2 Flow Rate 2 03/22/23 16:17 BMI result Body Mass Index 65.6 Appearance: Alert.? Oriented X3.? not in distress.?. cvs: rrr, [id number] . res: clear to auscultation ,no rhonchii or wheezing abd: no rebound or guarding ,minimum soarness, bs present. ext pulses present , no cyanosis . neuro: axo3 , nonfocal. Objective Data Active Medications Acetaminophen (Acetaminophen 325 Mg Tablet) 650 mg PO Q6H PRN PRN Reason: Pain, Mild (Pain Scale 1-3) Last Admin: 03/23/23 04:06 Dose: 650 mg Documented By: BRUNO Docusate Sodium (Docusate Sodium 100 Mg Capsule) 100 mg PO BID [facility] Last Admin: 03/23/23 08:17 Dose: 100 mg Documented By: SUHA Glucose (Glucose Gel 15 Gm Gel..Gram.) 15 gm PO Q15M PRN; Protocol PRN Reason: per Hypoglycemia Standing Ord. Ceftriaxone Sodium 1 gm/ (Sodium Chloride) 50 mls @ 100 mls/hr IV BEDTIME [facility] Last Infusion: 03/22/23 21:35 Dose: 0 mls/hr Documented By: ULISSES Metronidazole (Flagyl) 500 mg in 100 mls @ 100 mls/hr IV Q8H [facility] Last Infusion: 03/23/23 09:45 Dose: 0 mls/hr Documented By: SUHA Sodium Chloride (Ns) 1,000 mls @ 80 mls/hr IVCONT .[id number] [facility] Last Admin: 03/23/23 13:16 Dose: 80 mls/hr Documented By: SUHA Dextrose (D10) 250 mls @ 750 mls/hr IV Q15M PRN; Protocol PRN Reason: per Hypoglycemia Standing Ord. Insulin Human Lispro (Insulin Lispro 100 Unit/Ml 3 Ml Vial) 0 unit SUBCUT QIDACHS [facility]; Protocol Last Admin: 03/23/23 11:52 Dose: 4 unit Documented By: SUHA Loratadine (Loratadine 10 Mg Tablet) 10 mg PO DAILY [facility] Last Admin: 03/23/23 08:17 Dose: 10 mg Documented By: SUHA Morphine Sulfate (Morphine Sulfate 4 Mg/Ml Cartridge) 4 mg IVPUSH Q4H PRN; Protocol PRN Reason: Pain, Severe (Pain Scale 7-10) Last Admin: 03/22/23 21:15 Dose: 4 mg Documented By: ULISSES Omeprazole (Omeprazole 20 Mg Capsule.Dr) 20 mg PO DAILY@0630 [facility] Last Admin: 03/23/23 05:22 Dose: 20 mg Documented By: ULISSES Ondansetron HCl (Ondansetron Hcl 4 Mg/2 Ml Vial) 4 mg IVPUSH Q8H PRN PRN Reason: Nausea and Vomiting Oxycodone HCl (Oxycodone Hcl Immed Release 5 Mg Tablet) 5 mg PO Q4H PRN PRN Reason: Pain, Moderate(Pain Scale 4-6) Oxycodone HCl (Oxycodone Hcl Immed Release 5 Mg Tablet) 10 mg PO Q4H PRN PRN Reason: Pain, Severe (Pain Scale 7-10) Last Admin: 03/23/23 04:07 Dose: 10 mg Documented By: BRUNO Pharmacy Consult (Consult Rx Perform Med Rec) 1 each MISCELLANE ONCE PRN PRN Reason: Consult order Sodium Chloride (0.9 % Sodium Chloride Flush 3 Ml Syringe) 3 ml IVFLUSH [facility] Last Admin: 03/23/23 08:29 Dose: 3 ml Documented By: SUHA Sodium Chloride (0.9 % Sodium Chloride Flush 3 Ml Syringe) 3 ml IVFLUSH [facility] Last Admin: 03/23/23 08:29 Dose: Not Given Documented By: SUHA Non-Admin Reason: Duplicate Order Labs 03/22/23 05:10 03/22/23 05:10 Labs: Laboratory Results - last 24 hr 03/22/23 03/22/23 03/23/23 16:44 20:17 05:44 POC Glucose 203 H 222 H Total Bilirubin 2.0 H Direct Bilirubin 0.7 H AST 127 H ALT 110 H Alkaline Phosphatase 96 Total Protein 6.9 Albumin 3.7 03/23/23 03/23/23 07:26 11:31 POC Glucose 186 H 240 H Total Bilirubin Direct Bilirubin AST ALT Alkaline Phosphatase Total Protein Albumin Microbiology Microbiology Results: Microbiology 03/22/23 00:08 Blood Culture - Preliminary Blood - Venous No growth after 24 hours. 03/22/23 00:08 Blood Culture - Preliminary Blood - Venous No growth after 24 hours. Assessment and Plan (1) Acute cholecystitis: Status: Acute (2) Abdominal pain: Status: Acute (3) Cholelithiasis: Status: Acute Plan 47-year-old male with past medical history of diabetes, hypertension presents to the hospital with complaints of abdominal pain found to have likely ?acute cholecystitis #? abdominal pain, nausea vomiting -? pain in the right upper quadrant, with abnormal findings on the ultrasound of the abdomen suggestive of acute cholecystitis -? general surgery was consulted, they recommended HIDA scan and admission to general medical s/p lap mahesh ,has diogo drain ,continue antibiotics -? follow cultures #? diabetes -? low-dose sliding scale insulin -? diabetic diet #? hypertension -? stable -? will resume home antihypertensives ?ongoing hospital stay-possible acute cholecystsitis- s/p lap mahesh ,has diogo drain,iv antibiotics Time Spent With Patient Time: Total time managing care of this patient today ____ minutes. Quality Stroke Does the patient have a stroke diagnosis?: No VTE Prior VTE?: No VTE Risk Level:: Medical - moderate - high VTE Device Contraindication: N/A - Device Ordered VTE Drug Contraindication: Treatment Not Indicated
[2023-03-23 16:00] VITALS: BP 146/74; PULSE 96; RESP 20; TEMP 36.3; O2SAT 94
[2023-03-23 16:32] LABS: Glucose, Whole Blood 180 mg/dL (60-115)
[2023-03-23 20:00] VITALS: BP 162/68; PULSE 92; RESP 20; TEMP 36.9; O2SAT 95
[2023-03-23 20:58] LABS: Glucose, Whole Blood 182 mg/dL (60-115)
[2023-03-23] MEDS: cefTRIAXone sodium 1 GM in 0.9 % Sodium Chloride 50 ML IV (21:30)
[2023-03-23] MEDS: Morphine Sulfate 4 MG/ML CARTRIDGE IVPUSH (21:45)
[2023-03-24 03:56] VITALS: TEMP 36.8; O2SAT 95
[2023-03-24] MEDS: Omeprazole 20 MG CAPSULE.DR PO (05:41)
[2023-03-24 06:25] LABS: Alanine Aminotransferase 99 U/L (0-40); Albumin Level 3.2 g/dL (3.5-5.0); Alkaline Phosphatase 87 U/L (39-117); Aspartate Amino Transferase 71 U/L (5-37); Bilirubin Direct 0.6 mg/dL (0.0-0.5); Bilirubin Total 1.4 mg/dL (0.0-1.0); Total Protein 6.1 g/dL (6.5-8.0)
[2023-03-24 07:32] VITALS: BP 143/73; PULSE 82; RESP 18; TEMP 36.8; O2SAT 94
[2023-03-24 07:32] LABS: Glucose, Whole Blood 179 mg/dL (60-115)
--- NOTE | 2023-03-24 08:17 | P.PNGS_ITS ---
Subjective Subjective Date of Service: 03/24/23 <Dulce Davis PA-C - Last Filed: 03/24/23 08:23> 03/24/23 <Boris Reddy MD - Last Filed: 03/24/23 15:22> Interval history: Feels a little better this morning, reports pain at incision sites but fairly well controlled with analgesics. Tolerating solid diet. Has been OOB and ambulating with walker. <Dulce Davis PA-C - Last Filed: 03/24/23 08:23> Physical Exam Vital Signs: Vital Signs: Last Vital Signs Temp 98.3 F 03/24/23 07:32 Pulse 82 03/24/23 07:32 Resp 18 03/24/23 07:32 BP 143/73 H 03/24/23 07:32 Pulse Ox 94 03/24/23 07:32 O2 Del Method Room Air 03/24/23 07:32 O2 Flow Rate 2 03/22/23 16:17 BMI result Body Mass Index 65.6 <LINCOLN Montiel Last Filed: 03/24/23 08:23> Const: General: comfortable, no acute distress and alert <LINCOLN Montiel Last Filed: 03/24/23 08:23> Nutritional Appearance: obese <LINCOLN Montiel Last Filed: 03/24/23 08:23> Orientation/consciousness: patient oriented x3 <Dulce Davis PA-C - Last Filed: 03/24/23 08:23> Resp: Effort & Inspection: normal respiratory effort <LINCOLN Montiel Last Filed: 03/24/23 08:23> GI: Other: ARIEL drain with scanty serous drainage, removed <LINCOLN Montiel Last Filed: 03/24/23 08:23> Inspection: No distended and Yes incision (clean) <LINCOLN Montiel Last Filed: 03/24/23 08:23> Palpation (GI): Soft to palpation, Tenderness to palpation present (GI) (mild, incisional), no guarding, not rigid and Hernia present (umbilical hernia, soft, reducible) <Dulce Davis PA-C - Last Filed: 03/24/23 08:23> Percussion: Yes normal to percussion <Dulce Davis PA-C - Last Filed: 03/24/23 08:23> Skin: General skin exam: no rashes or lesions noted <Dulce Davis PA-C - Last Filed: 03/24/23 08:23> Neuro: General: patient oriented x3 and moves all extremities <Dulce Davis PA-C - Last Filed: 03/24/23 08:23> Objective Data Active Medications Acetaminophen (Acetaminophen 325 Mg Tablet) 650 mg PO Q6H PRN PRN Reason: Pain, Mild (Pain Scale 1-3) Last Admin: 03/23/23 04:06 Dose: 650 mg Documented By: BRUNO Docusate Sodium (Docusate Sodium 100 Mg Capsule) 100 mg PO BID [facility] Last Admin: 03/23/23 21:32 Dose: 100 mg Documented By: ULISSES Glucose (Glucose Gel 15 Gm Gel..Gram.) 15 gm PO Q15M PRN; Protocol PRN Reason: per Hypoglycemia Standing Ord. Ceftriaxone Sodium 1 gm/ (Sodium Chloride) 50 mls @ 100 mls/hr IV BEDTIME [facility] Last Infusion: 03/23/23 22:00 Dose: 0 mls/hr Documented By: ULISSES Metronidazole (Flagyl) 500 mg in 100 mls @ 100 mls/hr IV Q8H [facility] Last Infusion: 03/24/23 00:10 Dose: 0 mls/hr Documented By: ULISSES Dextrose (D10) 250 mls @ 750 mls/hr IV Q15M PRN; Protocol PRN Reason: per Hypoglycemia Standing Ord. Insulin Human Lispro (Insulin Lispro 100 Unit/Ml 3 Ml Vial) 0 unit SUBCUT QIDACHS [facility]; Protocol Last Admin: 03/23/23 21:32 Dose: 2 unit Documented By: ULISSES Loratadine (Loratadine 10 Mg Tablet) 10 mg PO DAILY [facility] Last Admin: 03/23/23 08:17 Dose: 10 mg Documented By: SUHA Morphine Sulfate (Morphine Sulfate 4 Mg/Ml Cartridge) 4 mg IVPUSH Q4H PRN; Protocol PRN Reason: Pain, Severe (Pain Scale 7-10) Last Admin: 03/23/23 21:45 Dose: 4 mg Documented By: ULISSES Omeprazole (Omeprazole 20 Mg Capsule.Dr) 20 mg PO DAILY@0630 [facility] Last Admin: 03/24/23 05:41 Dose: 20 mg Documented By: ULISSES Ondansetron HCl (Ondansetron Hcl 4 Mg/2 Ml Vial) 4 mg IVPUSH Q8H PRN PRN Reason: Nausea and Vomiting Oxycodone HCl (Oxycodone Hcl Immed Release 5 Mg Tablet) 5 mg PO Q4H PRN PRN Reason: Pain, Moderate(Pain Scale 4-6) Oxycodone HCl (Oxycodone Hcl Immed Release 5 Mg Tablet) 10 mg PO Q4H PRN PRN Reason: Pain, Severe (Pain Scale 7-10) Last Admin: 03/23/23 04:07 Dose: 10 mg Documented By: BRUNO Pharmacy Consult (Consult Rx Perform Med Rec) 1 each MISCELLANE ONCE PRN PRN Reason: Consult order Sodium Chloride (0.9 % Sodium Chloride Flush 3 Ml Syringe) 3 ml IVFLUSH [facility] Last Admin: 03/23/23 23:12 Dose: Not Given Documented By: ULISSES Non-Admin Reason: IV Running Sodium Chloride (0.9 % Sodium Chloride Flush 3 Ml Syringe) 3 ml IVFLUSH [facility] Last Admin: 03/23/23 23:12 Dose: Not Given Documented By: ULISSES Non-Admin Reason: IV Running <Dulce Davis PA-C - Last Filed: 03/24/23 08:23> Labs CBC & Chem 7: 03/22/23 05:10 03/22/23 05:10 <Dulce Davis PA-C - Last Filed: 03/24/23 08:23> Labs: Laboratory Results - last 24 hr 03/23/23 03/23/23 03/23/23 11:31 16:21 20:50 POC Glucose 240 H 180 H 182 H Total Bilirubin Direct Bilirubin AST ALT Alkaline Phosphatase Total Protein Albumin 03/24/23 03/24/23 05:41 07:08 POC Glucose 179 H Total Bilirubin 1.4 H Direct Bilirubin 0.6 H AST 71 H ALT 99 H Alkaline Phosphatase 87 Total Protein 6.1 L Albumin 3.2 L <LINCOLN Montiel Last Filed: 03/24/23 08:23> Microbiology Microbiology Results: Microbiology 03/22/23 00:08 Blood Culture - Preliminary Blood - Venous No growth after 48 hours. 03/22/23 00:08 Blood Culture - Preliminary Blood - Venous No growth after 48 hours. <LINCOLN Montiel Last Filed: 03/24/23 08:23> Procedures Date of Service Date of Service: 03/24/23 <Dulce Davis PA-C - Last Filed: 03/24/23 08:23> 03/24/23 <Boris Reddy MD - Last Filed: 03/24/23 15:22> Progress Note: A&P Assessment and plan (1) Acute cholecystitis: Status: Acute <LINCOLN Montiel Last Filed: 03/24/23 08:23> (2) S/P laparoscopic cholecystectomy: Status: Acute <LINCOLN Montiel Last Filed: 03/24/23 08:23> Assessment and Plan: 47 year old male with BRANDEN, DM, morbid obesity admitted with acute cholecystitis now POD #2 s/p lap CCY. He is doing well post op. Abd benign with clean incisions, appropriate post op tenderness. ARIEL drain with scant serous output and removed. LFTs are downtrending, likely elevated secondary to cholecystitis. He is stable for discharge to home from surgical standpoint. Can f/u in office in [address] Reddy. Patient comfortable with plan. He has appointment scheduled with weight management at [facility] for end of the month. <LINCOLN Montiel Last Filed: 03/24/23 08:23> Time Spent With Patient Time: Total time managing care of this patient today ____ minutes. <LINCOLN Montiel Last Filed: 03/24/23 08:23> Quality Stroke Does the patient have a stroke diagnosis?: No <LINCOLN Montiel Last Filed: 03/24/23 08:23> VTE Prior VTE?: No <LINCOLN Montiel Last Filed: 03/24/23 08:23> VTE Risk Level:: Medical - moderate - high <LINCOLN Montiel Last Filed: 03/24/23 08:23> VTE Device Contraindication: N/A - Device Ordered <LINCOLN Montiel Last Filed: 03/24/23 08:23> VTE Drug Contraindication: Treatment Not Indicated <Dulce Davis PA-C - Last Filed: 03/24/23 08:23>
[2023-03-24] MEDS: Insulin Lispro 100 UNIT/ML 3 ML VIAL SUBCUT ×2 (08:31→11:32)
[2023-03-24] MEDS: Loratadine 10 MG TABLET PO (08:31)
[2023-03-24] MEDS: metroNIDAZOLE/NS 500 MG/100 ML PIGGYBACK 100 MG IV (08:31)
[2023-03-24] MEDS: Docusate Sodium 100 MG CAPSULE PO (08:31)
[2023-03-24] MEDS: 0.9 % Sodium Chloride Flush 3 ML SYRINGE IVFLUSH ×2 (08:32)
[2023-03-24 11:24] LABS: Glucose, Whole Blood 226 mg/dL (60-115)
[2023-03-24] MEDS: lisinopriL 20 MG TABLET PO (11:32)
--- NOTE | 2023-03-24 11:54 | PM.DS ---
DS: Providers Provider Date of Service: 03/24/23 Date of admission: 03/21/23 23:30 Primary care physician: JUAN Zavala Consults: 03/21/23 23:02 Consult to Gastroenterology Stat Consulting Provider: Milton Ross Reason for consultation: R sided abd pain Consult to General Surgery Stat Consulting Provider: [facility] Reason for consultation: R sided abd pain DS: Diagnosis Discharge Diagnosis (1) Acute cholecystitis: Status: Acute (2) Abdominal pain: Status: Acute (3) Cholelithiasis: Status: Acute DS: Summary Hospital Course Hospital Course: Hospital course: Patient admitted for abdominal pain and mildly elevated LFTs,in addition abdominal ultrasound showed cholelithiasis as well as possible cholecystitis: Patient was started on bowel rest, IV hydration and pain medication as well as antibiotics, blood cultures sent. Patient was seen by GI and surgery: Patient underwent lap cholecystectomy, LFTs are slowly improving, MRIs difficult to obtain . Patient abdominal pain improved significantly after lap mahesh,Robert drain removed today ,patient is asymptomatic as well as tolerating diet. Patient was strongly advised to follow-up LFT outpatient with PCP and further management out patiently. Consider outpatient GI evaluation if LFTs are persistently elevated. Time Spent with Patient Time attestation: Total time managing care of this patient today ____ minutes. Discharge coordination time: Greater than 30 minutes Quality: Safe Use of Opioids Does Pt have an Active Cancer Diagnosis on the Problem List?: No Quality: Stroke Does the patient have a stroke diagnosis?: No Physical Exam Vital Signs: Vital Signs: Last Vital Signs Temp 98.3 F 03/24/23 07:32 Pulse 82 03/24/23 07:32 Resp 18 03/24/23 07:32 BP 143/73 H 03/24/23 07:32 Pulse Ox 94 03/24/23 07:32 O2 Del Method Room Air 03/24/23 07:32 O2 Flow Rate 2 03/22/23 16:17 BMI result Body Mass Index 65.6 DS: Data Data Completed and Pending Pending studies at discharge: Pending at discharge 03/22/23 14:39 Surgical [PTH] Routine Labs on day of discharge: Laboratory Results - last 24 hr 03/23/23 03/23/23 03/24/23 16:21 20:50 05:41 POC Glucose 180 H 182 H Total Bilirubin 1.4 H Direct Bilirubin 0.6 H AST 71 H ALT 99 H Alkaline Phosphatase 87 Total Protein 6.1 L Albumin 3.2 L 03/24/23 03/24/23 07:08 11:08 POC Glucose 179 H 226 H Total Bilirubin Direct Bilirubin AST ALT Alkaline Phosphatase Total Protein Albumin Preliminary micro results at discharge 03/22/23 00:08 Blood Culture - Preliminary Blood - Venous No growth after 48 hours. 03/22/23 00:08 Blood Culture - Preliminary Blood - Venous No growth after 48 hours. Discharge Plan Discharge Anticipated Discharge Date/Time: 03/24/23 11:42 Patient Disposition: Home, Self-Care Discharge Diagnosis: acute cholecystitis, cholelithiasis. Referrals: Yulia Smith PA [Primary Care Provider] - 1 Week Boris Reddy MD [Physician] - 1 Week Discharge Medications: New docusate sodium 100 mg Capsule 100 mg PO BID PRN (Reason: constipation) Qty: 30 0RF acetaminophen 325 mg Tablet 650 mg PO Q6H PRN (Reason: Pain, Mild (Pain Scale 1-3)) Qty: 10 0RF oxycodone 5 mg Tablet 5 mg PO Q4H PRN (Reason: Pain, Moderate(Pain Scale 4-6)) Qty: 10 0RF Rx Instructions: Partial Fill upon patient request. Continued aspirin 81 mg tablet,delayed release (DR/EC) 81 mg PO DAILY pantoprazole 20 mg tablet,delayed release (DR/EC) 20 mg PO DAILY lisinopril 30 mg tablet 30 mg PO DAILY loratadine 10 mg Tablet 10 mg PO DAILY Trulicity 0.75 mg/0.5 mL pen injector 0.75 mg subcut QWEEK Discharge Orders: Discharge Order (Routine); Ordered 03/24/23 Ordered By: Osmar Pimentel Diet: Low fat, low cholesterol Activity on Discharge: No heavy lifting Stand Alone Forms: Patient Portal Discharge page Other Ambulatory Orders: Liver Panel (Routine) Timeframe: 1 Week Facility: [facility] - Location: Laboratory Ordered By: Osmar Pimentel Activity Restrictions/Additional Instructions: Apply an ice pack for short intervals (20 minutes on, followed by at least 20 minutes off) for the first 2 days. Do not apply heat. Do not use creams, lotions, or topical antibiotics. These can cause infection or allergic reaction. Ok to shower 48 hours after your surgery. Remove dressings in 2 days and replace as needed. You have steri strips (small white cloth strips) covering your incision- these will fall off ~1 week. Follow up in office with Dr. Reddy in 1 week. ([phone]) No heavy lifting (>10lbs) or strenuous activity! Call Your Doctor If: -Your temperature exceeds 101.5? F -You experience excessive pain or swelling -You have an unexpected reaction to medication -You have excessive bleeding -You experience continued vomiting/nausea -Your incision begins to separate -Your incision shows signs of infection such as increased redness, swelling, excessive pain, drainage (light blood or clear fluid is normal) or heat Care Plan Goals: Patient admitted for abdominal pain and mildly elevated LFTs,in addition abdominal ultrasound showed cholelithiasis as well as possible cholecystitis: Patient was started on bowel rest, IV hydration and pain medication as well as antibiotics, blood cultures sent. Patient was seen by GI and surgery: Patient underwent lap cholecystectomy, LFTs are slowly improving, MRIs difficult to obtain . Patient abdominal pain improved significantly after lap mahesh,Robert drain removed today ,patient is asymptomatic as well as tolerating diet. Patient was strongly advised to follow-up LFT outpatient with PCP and further management out patiently. Consider outpatient GI evaluation if LFTs are persistently elevated. Health Concerns: As above. Plan of Treatment: As above. Assessment: As above. Discharge Date/Time: 03/24/23 14:19
--- NOTE | 2023-03-24 12:05 | MHC.CM.PN ---
PATIENT IS DC HOME WITH NO NEED FOR ADDITIONAL SERVICES. TO PROVIDE TRANSPORT HOME PER YESTERDAY'S CONVERSATION
--- NOTE | 2023-03-24 15:22 | P.OP_ITS ---
Operative Note Operative Note Date of Service: 03/24/23 Narrative: Preoperative diagnosis: [] recurrent Biliary colic Postop diagnosis: [] acute phlegmonous cholecystitis, incidental finding of incarcerated umbilical hernia Procedure [] laparoscopic cholecystectomy and primary repair of incarcerated umbilical hernia Surgeon: [] Barry Principal Consultant: [] ariel Davis Type of Anesthesia: [] general Indication for surgery: [] patient had a markedly thickened phlegmonous gallbladder with dense omental adhesions to it. Gallbladder was markedly intrahepatic. Very Corpulent abdomen. Incidental finding of an incarcerated umbilical hernia with omental contents which was used as the umbilical port measuring approximately 2 cm. Findings: [] Patient brought to the operating room, placed on the OR table in the supine position, and after an adequate level of general anesthesia was i nduced, the patient's abdomen, which was quite corpulent , was prepped and draped in usual sterile fashion. Using a supraumbilical curvilinear incision, Irving technique was used to insufflated on the cavity to 15 minutes nasal CO2. Upper midline and right subcostal ports were placed under direct laparoscopic view, and the patient was placed in reverse Trendelenburg position, and tilted to the left. Findings were as noted above. Initially, dense omental lesions were swept off the gallbladder, the latter of which was then grasped using laparoscopic graspers and retracted superiorly and laterally. Gallbladder was markedly phlegmonous and thickened. Hilum was approached and the common bile duct was identified and preserved throughout the procedure. Cystic artery and cystic duct were identified, each circumferentially skeletonized and each traced directly into the gallbladder and critical view obtained. Each was clipped proximally x2, distally x1, and transected. Gallbladder which was markedly thickened and intrahepatic was then cauterized from the gallbladder fossa using electro Bovie. Specimen was placed in an Endo-Catch bag, and retrieved through the umbilical port. Abdominal cavity was very copiously irrigated, and secured hemostasis. Because of the markedly inflamed phlegmonous gallbladder findings, a [place] drain was left in the gallbladder fossa and exited to the right lateral port and secured to the skin using 2-0 nylon.. All ports were removed under direct laparoscopic view, after the abdominal cavity was again irrigated and secured hemostasis. Wounds are closing the following manner; umbilical wound , which is site of the incarcerated hernia, was closed primarily using interrupted 0 Vicryl sutures. Skin wounds were closed using subcuticular 4-0 Vicryl sutures followed by Steri- Strips and sterile dressings. Wounds were infiltrated with 0.5% Marcaine at completion. EBL minimal Sponge, needle, and instrument counts reported to be correct. Patient tolerated the procedure well And emerged from anesthesia stable condition.
== END 2023-03-24 14:19 | disposition home or self-care (01) | DRG 263 ==
LOC: HO.ED 15:54 → HO.EDOVER 23:36 → HO.S3 03-22 01:39
PROVIDERS: Internal Medicine; Nurse Practitioner Family; Physician Assistant Surgical; Surgery; Admitting Provider Internal Medicine; Emergency Provider Student in an Organized Health Care Education/Training Program; PCP Physician Assistant Medical; Visit Provider Internal Medicine
PROC: 0FT44ZZ Resection of Gallbladder, Percutaneous Endoscopic Approach (ICD-10-PCS; CPT 47562; principal; 2023-03-22 13:30)
DX: K80.00 Calculus of gallbladder with acute cholecystitis without obstruction (principal); K82.A1 Gangrene of gallbladder in cholecystitis; K82.8 Other specified diseases of gallbladder; E11.9 Type 2 diabetes mellitus without complications; G47.33 Obstructive sleep apnea (adult) (pediatric); Z68.44 Body mass index [BMI] 60.0-69.9, adult; E66.01 Morbid (severe) obesity due to excess calories; I10 Essential (primary) hypertension; Z20.822 Contact with and (suspected) exposure to COVID-19; Z79.82 Long term (current) use of aspirin; Z79.899 Other long term (current) drug therapy
CPT/HCPCS: 36415; 76705; 80048; 80076; 81003; 82947; 83690; 85025; 85610; 87040; 87635; 88304; 93005; 94660; 99221; 99285; J0131; J0696; J2270; J2405; J2795; J3010; Q9967

== ENCOUNTER → 2023-04-19 11:28 | Outpatient (BNVA) | payer OTHER, SELFPAY | PROVIDERS: PCP Physician Assistant Medical; Visit Provider Surgery | DX: Z09 Encounter for follow-up examination after completed treatment for conditions other than malignant neoplasm (principal); Z90.49 Acquired absence of other specified parts of digestive tract | CPT/HCPCS: 99212 ==